=== PATIENT | female | born 1975 | race Caucasian/White ===

== ENCOUNTER → 2017-06-19 16:38 | Outpatient (CLI) | payer MEDICARE, OTHER, MEDICAID, SELFPAY | PROVIDERS: Family Provider Family Medicine; PCP Family Medicine; Visit Provider Family Medicine | DX: R32 Unspecified urinary incontinence (principal) | CPT/HCPCS: 87086; 87088 ==

== ENCOUNTER 2017-07-23 11:53 | Emergency (ER) | payer MEDICARE, OTHER, MEDICAID, SELFPAY ==
--- NOTE | 2017-07-23 11:53 | DT_ITS ---
This patient was seen during an EMR downtime July 16, 2017 - July 23, 2017. This patient may have a combination of paper and electronic documentation or all paper documentation. All documentation is viewable within the e-chart portion of [employer] for each patient visit.
[2017-07-23 11:55] VITALS: BP 148/94; PULSE 84; RESP 16; TEMP 36.3; O2SAT 97
--- NOTE | 2017-07-23 12:43 | CT_ITS ---
STUDY: CT BRAIN WITHOUT CONTRAST REASON FOR EXAM: Female, 42 years old. Seizures. Shunt. Right hemiparesis. RADIATION DOSAGE (If Supplied By Facility): CTDIvol = ( 44.99 ) mGy, DLP = ( 1727.20 ) mGycm TECHNIQUE: Transaxial CT imaging of the brain was performed without administration of intravenous contrast material. Individualized dose optimization techniques were used for this CT. COMPARISON: March 04, 2013. FINDINGS: Normal soft tissue structures. There are bur holes on the right. There is ventriculostomy shunt catheter from right posterior aspect. There is a subdural catheter entering from right frontal region. There is asymmetry of the ventricles consistent with an anatomic variant. There is stable left frontal volume loss and encephalomalacia. Normal basal ganglia and thalami. Normal brainstem. Normal cerebellum. There is no intracranial hemorrhage. There are no findings of an acute ischemic infarction. Normal visualized paranasal sinuses. CT/Brain/Head without Contrast IMPRESSION: Chronic involutional changes of the brain. Stable appearance. No hemorrhage. Electronically Signed: Aayush Barrow MD at 14:47 EDT , Service support ,
--- NOTE | 2017-07-23 12:43 | EKG12_ITS ---
Test Reason : Blood Pressure : / mmHG Vent. Rate : 074 BPM Atrial Rate : 074 BPM P-R Int : 160 ms QRS Dur : 070 ms QT Int : 368 ms P-R-T Axes : 036 066 050 degrees QTc Int : 408 ms Normal sinus rhythm Low voltage QRS Borderline ECG Confirmed by TRESSA BELL, TANYA ([id number]), photograph editor MARYBEL CASTRO ([id number]) on 07/25/2017 5:59:52 PM Referred By: KESHIA Confirmed By:TANYA BUSTILLOS MD
--- NOTE | 2017-07-23 13:46 | ED.VIS.GEN ---
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 She usually has somewhat of a right facial droop, however it was noticed to be significantly worse today while at workshop. She resides in a [facility]. 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 No new eye sx/findings (hx of lazy right eye), no difference in RUE and RLE weakness. No recent head injury or other illness. 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 (4) Lumbar degenerative disc disease Status: Chronic (5) Lumbar radiculopathy Status: Chronic (6) Traumatic brain injury Status: Chronic Past Medical History - Allergies and Home Meds Allergies/Adverse Reactions: Allergies phenytoin sodium [From Dilantin] Allergy (Verified 06/21/16 04:18) Unknown phenytoin sodium extended [From Dilantin] Allergy (Verified 06/21/16 04:18) Unknown Sulfa (Sulfonamide Antibiotics) Allergy (Verified 06/21/16 04:18) Unknown Primary Care Physician: Mary Nuñez MD [Primary Care Provider] - Surgical History: - - Hip L surgery, RETAIL LOSS PREVENTION OFFICER/SA shunt surgery, oopherectomy, skin graft, left arm surgery, heel cord surgery. Lives: - - [facility] Smoking Status: Never smoker Review of Systems General: Denies: Chills, Fever Cardiovascular: Denies: Chest pain, Palpitations Respiratory: Denies: Dyspnea, Cough Gastrointestinal: Denies: Abdominal pain, Nausea, Vomiting Neurological: Reports: Weakness - right side chronic, Parasthesia - R side chronic. Denies: Headache Physical Exam Vital Signs/Narrative: Vital Signs Temp Pulse Resp BP Pulse Ox 07/23/17 11:55 97.4 F L 84 16 148/94 H 97 General: Well nourished, Well developed Head: Normocephalic, Atraumatic Eyes: Perrl, - - left eye EOMI; R eye forced out to right; at baseline per mother/staff ENT: Moist mucous membranes, No rhinorrhea, TM's clear. Negative for: Nasal congestion, Sinus tenderness Neck: Supple, Nontender, No lymphadenopathy Cardiovascular: Regular rate, Regular rhythm, No murmurs Respiratory: No distress, CTA bilaterally, Chest nontender Abdomen: Soft, Nontender, Nondistended, Normal bowel sounds Back: Nontender, Normal Inspection Extremities: Nontender, No edema Skin: Normal color, No rash Neurological: Alert - keenly, Oriented x3 - at baseline mental status, Parasthesia - RUE and RLE. Normal sensation face., Weakness - RUE and RLE > LLE. nml strength LUE., Right side facial droop - and asymmetric forehead raising, w/ objective weakness in right frontalis muscle, although it appears to move a little., - - pt can stick out tongue straight in midline. Diagnostic/Tx/Re-eval Impressions Brain CT 07/23/17 12:43 IMPRESSION: Chronic involutional changes of the brain. Stable appearance. No hemorrhage. Electronically Signed: Aayush Barrow MD at 14:47 EDT , Service support , 07/23/17 12:43 Brain/Head without Contrast [CT] Stat Laboratory Results 07/23/17 07/23/17 07/23/17 Range/Units 13:35 13:35 14:13 WBC 5.8 (4.4-11.0) K/mm3 RBC 4.58 (4.2-5.4) M/mm3 Hgb 13.7 (12.0-15.0) g/dl Hct 41.6 (37-47) % MCV 90.8 (81-99) fL MCH 29.9 (27.0-32.0) pg MCHC 32.9 (32-36) g/gl RDW 13.2 (11.6-14.6) % RDW Differential 43.6 (35.1-43.9) fl Plt Count 212 (150-450) K/mm3 MPV 10.3 (6.2-12.0) fl Immature Gran % (Auto) 0.000 (0.0-0.9) % Neut % (Auto) 58.2 (47-70) % Lymph % (Auto) 30.5 (19-41) % [place] % (Auto) 6.8 (0-10) % Eos % (Auto) 3.8 (0-5) % Baso % (Auto) 0.7 (0-1) % Absolute Neuts (auto) 3.4 (2.0-7.7) X10^3/uL Absolute Lymphs (auto) 1.78 (0.83-4.51) X10^3/ul Total Counted Not Reportable Sodium 134 L (136-145) mmol/L Potassium 4.9 (3.5-5.1) mmol/L Chloride 102 (98-107) mmol/L Carbon Dioxide 21.0 (21.0-32.0) mmol/L Anion Gap 11 (5-15) BUN 12 (7-18) mg/dL Creatinine 0.48 L (0.55-1.02) mg/dL Est GFR (MDRD) Af Amer 181 (>60) mL/min Est GFR (MDRD) Non-Af 150 (>60) mL/min BUN/Creatinine Ratio 25.1 H (10-20) RATIO Glucose 63 L (74-106) mg/dL Calcium 8.2 L (8.5-10.1) mg/dL Urine Color (Yellow) Urine Clarity (Clear) Urine pH (5.0 - 8.0) Ur Specific [place] (1.002-1.030) Urine Protein (Negative) mg/dl Urine Glucose (UA) (Normal) mg/dl Urine Ketones (Negative) mg/dl Urine Occult Blood (Negative) /ul Urine Nitrite (Negative) Urine Bilirubin (Negative) mg/dL Urine Urobilinogen (Normal) mg/dl Ur Leukocyte Esterase (Negative) /ul Urine RBC (0-5) /hpf Urine WBC (0-5) /hpf Ur Squamous Epith Cells (5-10) /hpf Urine Bacteria (None Seen) /hpf Urine Mucus (<or=2+) /hpf Carbamazepine 6.5 (4.0-12.0) ug/mL 07/23/17 Range/Units 14:45 WBC (4.4-11.0) K/mm3 RBC (4.2-5.4) M/mm3 Hgb (12.0-15.0) g/dl Hct (37-47) % MCV (81-99) fL MCH (27.0-32.0) pg MCHC (32-36) g/gl RDW (11.6-14.6) % RDW Differential (35.1-43.9) fl Plt Count (150-450) K/mm3 MPV (6.2-12.0) fl Immature Gran % (Auto) (0.0-0.9) % Neut % (Auto) (47-70) % Lymph % (Auto) (19-41) % [place] % (Auto) (0-10) % Eos % (Auto) (0-5) % Baso % (Auto) (0-1) % Absolute Neuts (auto) (2.0-7.7) X10^3/uL Absolute Lymphs (auto) (0.83-4.51) X10^3/ul Total Counted Sodium (136-145) mmol/L Potassium (3.5-5.1) mmol/L Chloride (98-107) mmol/L Carbon Dioxide (21.0-32.0) mmol/L Anion Gap (5-15) BUN (7-18) mg/dL Creatinine (0.55-1.02) mg/dL Est GFR (MDRD) Af Amer (>60) mL/min Est GFR (MDRD) Non-Af (>60) mL/min BUN/Creatinine Ratio (10-20) RATIO Glucose (74-106) mg/dL Calcium (8.5-10.1) mg/dL Urine Color Yellow (Yellow) Urine Clarity Sl. Cloudy (Clear) Urine pH 7.0 (5.0 - 8.0) Ur Specific [place] 1.015 (1.002-1.030) Urine Protein Negative (Negative) mg/dl Urine Glucose (UA) Normal (Normal) mg/dl Urine Ketones Negative (Negative) mg/dl Urine Occult Blood Negative (Negative) /ul Urine Nitrite Negative (Negative) Urine Bilirubin Negative (Negative) mg/dL Urine Urobilinogen Normal (Normal) mg/dl Ur Leukocyte Esterase Negative (Negative) /ul Urine RBC 0 SEEN (0-5) /hpf Urine WBC 0 SEEN (0-5) /hpf Ur Squamous Epith Cells 0-5 SEEN (5-10) /hpf Urine Bacteria 0 SEEN (None Seen) /hpf Urine Mucus 0 SEEN (<or=2+) /hpf Carbamazepine (4.0-12.0) ug/mL - Rhythm Strip Rhythm Strip: Sinus Rhythm Rate: 75 Ectopy: None - EKG 1 Interpretation: Sinus Rhythm, No Acute Injury Pattern, - - nml axis. Prior: Unchanged - Medical Decision Making CT shows nothing acute, labs are otherwise unremarkable including carbamazepine level and a urinalysis which was performed by straight catheterization. Patient remained stable. On reevaluation, she has a little bit more asymmetry in her forehead, again consistent with Hill's palsy and reassuring given her CAT scan. My plan is to treat her with steroids and valacyclovir since she has no contraindications, and have her follow-up with her doctor as an outpatient. Discussed with patient and family and they are comfortable with that plan. Of note, patient has a RETAIL LOSS PREVENTION OFFICER shunt and a subdural drain, both of which were seen on CT and unremarkable otherwise. ED Disposition - Plan for ED Patient: Disposition: Home or Assisted Living Chief Complaint: Neuro S/Sx Diagnosis: Hill's palsy Instructions: ED [place] Palsy Prescriptions: Prednisone 40 mg PO DAILY #14 tab Valacyclovir HCl [Valacyclovir] 1,000 mg PO TID #21 tab Referrals: Mary Nuñez MD [Primary Care Provider] - 2 Days
--- NOTE | 2017-07-23 13:54 | ED.DCSUM_ITS ---
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 She usually has somewhat of a right facial droop, however it was noticed to be significantly worse today while at workshop. She resides in a [facility]. 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 No new eye sx/findings (hx of lazy right eye), no difference in RUE and RLE weakness. No recent head injury or other illness. 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 (4) Lumbar degenerative disc disease Status: Chronic (5) Lumbar radiculopathy Status: Chronic (6) Traumatic brain injury Status: Chronic Past Medical History - Allergies and Home Meds Allergies/Adverse Reactions: Allergies phenytoin sodium [From Dilantin] Allergy (Verified 06/21/16 04:18) Unknown phenytoin sodium extended [From Dilantin] Allergy (Verified 06/21/16 04:18) Unknown Sulfa (Sulfonamide Antibiotics) Allergy (Verified 06/21/16 04:18) Unknown Primary Care Physician: Mary Nuñez MD [Primary Care Provider] - Surgical History: - - Hip L surgery, BRICK GRADER/SA shunt surgery, oopherectomy, skin graft, left arm surgery, heel cord surgery. Lives: - - [facility] Smoking Status: Never smoker Review of Systems General: Denies: Chills, Fever Cardiovascular: Denies: Chest pain, Palpitations Respiratory: Denies: Dyspnea, Cough Gastrointestinal: Denies: Abdominal pain, Nausea, Vomiting Neurological: Reports: Weakness - right side chronic, Parasthesia - R side chronic. Denies: Headache Physical Exam Vital Signs/Narrative: Vital Signs Temp Pulse Resp BP Pulse Ox 07/23/17 11:55 97.4 F L 84 16 148/94 H 97 General: Well nourished, Well developed Head: Normocephalic, Atraumatic Eyes: Perrl, - - left eye EOMI; R eye forced out to right; at baseline per mother/staff ENT: Moist mucous membranes, No rhinorrhea, TM's clear. Negative for: Nasal congestion, Sinus tenderness Neck: Supple, Nontender, No lymphadenopathy Cardiovascular: Regular rate, Regular rhythm, No murmurs Respiratory: No distress, CTA bilaterally, Chest nontender Abdomen: Soft, Nontender, Nondistended, Normal bowel sounds Back: Nontender, Normal Inspection Extremities: Nontender, No edema Skin: Normal color, No rash Neurological: Alert - keenly, Oriented x3 - at baseline mental status, Parasthesia - RUE and RLE. Normal sensation face., Weakness - RUE and RLE > LLE. nml strength LUE., Right side facial droop - and asymmetric forehead raising, w/ objective weakness in right frontalis muscle, although it appears to move a little., - - pt can stick out tongue straight in midline. Diagnostic/Tx/Re-eval Impressions Brain CT 07/23/17 12:43 IMPRESSION: Chronic involutional changes of the brain. Stable appearance. No hemorrhage. Electronically Signed: Aayush Barrow MD at 14:47 EDT , Service support , 07/23/17 12:43 Brain/Head without Contrast [CT] Stat Laboratory Results 07/23/17 07/23/17 07/23/17 Range/Units 13:35 13:35 14:13 WBC 5.8 (4.4-11.0) K/mm3 RBC 4.58 (4.2-5.4) M/mm3 Hgb 13.7 (12.0-15.0) g/dl Hct 41.6 (37-47) % MCV 90.8 (81-99) fL MCH 29.9 (27.0-32.0) pg MCHC 32.9 (32-36) g/gl RDW 13.2 (11.6-14.6) % RDW Differential 43.6 (35.1-43.9) fl Plt Count 212 (150-450) K/mm3 MPV 10.3 (6.2-12.0) fl Immature Gran % (Auto) 0.000 (0.0-0.9) % Neut % (Auto) 58.2 (47-70) % Lymph % (Auto) 30.5 (19-41) % [place] % (Auto) 6.8 (0-10) % Eos % (Auto) 3.8 (0-5) % Baso % (Auto) 0.7 (0-1) % Absolute Neuts (auto) 3.4 (2.0-7.7) X10^3/uL Absolute Lymphs (auto) 1.78 (0.83-4.51) X10^3/ul Total Counted Not Reportable Sodium 134 L (136-145) mmol/L Potassium 4.9 (3.5-5.1) mmol/L Chloride 102 (98-107) mmol/L Carbon Dioxide 21.0 (21.0-32.0) mmol/L Anion Gap 11 (5-15) BUN 12 (7-18) mg/dL Creatinine 0.48 L (0.55-1.02) mg/dL Est GFR (MDRD) Af Amer 181 (>60) mL/min Est GFR (MDRD) Non-Af 150 (>60) mL/min BUN/Creatinine Ratio 25.1 H (10-20) RATIO Glucose 63 L (74-106) mg/dL Calcium 8.2 L (8.5-10.1) mg/dL Urine Color (Yellow) Urine Clarity (Clear) Urine pH (5.0 - 8.0) Ur Specific [place] (1.002-1.030) Urine Protein (Negative) mg/dl Urine Glucose (UA) (Normal) mg/dl Urine Ketones (Negative) mg/dl Urine Occult Blood (Negative) /ul Urine Nitrite (Negative) Urine Bilirubin (Negative) mg/dL Urine Urobilinogen (Normal) mg/dl Ur Leukocyte Esterase (Negative) /ul Urine RBC (0-5) /hpf Urine WBC (0-5) /hpf Ur Squamous Epith Cells (5-10) /hpf Urine Bacteria (None Seen) /hpf Urine Mucus (<or=2+) /hpf Carbamazepine 6.5 (4.0-12.0) ug/mL 07/23/17 Range/Units 14:45 WBC (4.4-11.0) K/mm3 RBC (4.2-5.4) M/mm3 Hgb (12.0-15.0) g/dl Hct (37-47) % MCV (81-99) fL MCH (27.0-32.0) pg MCHC (32-36) g/gl RDW (11.6-14.6) % RDW Differential (35.1-43.9) fl Plt Count (150-450) K/mm3 MPV (6.2-12.0) fl Immature Gran % (Auto) (0.0-0.9) % Neut % (Auto) (47-70) % Lymph % (Auto) (19-41) % [place] % (Auto) (0-10) % Eos % (Auto) (0-5) % Baso % (Auto) (0-1) % Absolute Neuts (auto) (2.0-7.7) X10^3/uL Absolute Lymphs (auto) (0.83-4.51) X10^3/ul Total Counted Sodium (136-145) mmol/L Potassium (3.5-5.1) mmol/L Chloride (98-107) mmol/L Carbon Dioxide (21.0-32.0) mmol/L Anion Gap (5-15) BUN (7-18) mg/dL Creatinine (0.55-1.02) mg/dL Est GFR (MDRD) Af Amer (>60) mL/min Est GFR (MDRD) Non-Af (>60) mL/min BUN/Creatinine Ratio (10-20) RATIO Glucose (74-106) mg/dL Calcium (8.5-10.1) mg/dL Urine Color Yellow (Yellow) Urine Clarity Sl. Cloudy (Clear) Urine pH 7.0 (5.0 - 8.0) Ur Specific [place] 1.015 (1.002-1.030) Urine Protein Negative (Negative) mg/dl Urine Glucose (UA) Normal (Normal) mg/dl Urine Ketones Negative (Negative) mg/dl Urine Occult Blood Negative (Negative) /ul Urine Nitrite Negative (Negative) Urine Bilirubin Negative (Negative) mg/dL Urine Urobilinogen Normal (Normal) mg/dl Ur Leukocyte Esterase Negative (Negative) /ul Urine RBC 0 SEEN (0-5) /hpf Urine WBC 0 SEEN (0-5) /hpf Ur Squamous Epith Cells 0-5 SEEN (5-10) /hpf Urine Bacteria 0 SEEN (None Seen) /hpf Urine Mucus 0 SEEN (<or=2+) /hpf Carbamazepine (4.0-12.0) ug/mL - Rhythm Strip Rhythm Strip: Sinus Rhythm Rate: 75 Ectopy: None - EKG 1 Interpretation: Sinus Rhythm, No Acute Injury Pattern, - - nml axis. Prior: Unchanged - Medical Decision Making CT shows nothing acute, labs are otherwise unremarkable including carbamazepine level and a urinalysis which was performed by straight catheterization. Patient remained stable. On reevaluation, she has a little bit more asymmetry in her forehead, again consistent with Hill's palsy and reassuring given her CAT scan. My plan is to treat her with steroids and valacyclovir since she has no contraindications, and have her follow-up with her doctor as an outpatient. Discussed with patient and family and they are comfortable with that plan. Of note, patient has a BRICK GRADER shunt and a subdural drain, both of which were seen on CT and unremarkable otherwise. ED Disposition - Plan for ED Patient: Disposition: Home or Assisted Living Chief Complaint: Neuro S/Sx Diagnosis: Hill's palsy Instructions: ED [place] Palsy Prescriptions: Prednisone 40 mg PO DAILY #14 tab Valacyclovir HCl [Valacyclovir] 1,000 mg PO TID #21 tab Referrals: Mary Nuñez MD [Primary Care Provider] - 2 Days
[2017-07-23 14:01] LABS: Absolute Lymphocyte Count 1.78 X10^3/ul (0.83-4.51); Absolute Neutrophil Count 3.4 X10^3/uL (2.0-7.7); Basophil# 0.04 X10^3/uL; Basophil% 0.7 % (0-1); Eosinophil# 0.22 X10^3/uL; Eosinophils% 3.8 % (0-5); Hematocrit 41.6 % (37-47); Hemoglobin 13.7 g/dl (12.0-15.0); Lymphocyte # 1.78 X10^3/ul (4.0); Lymphocyte % 30.5 % (19-41); Mean Corp Hgb Conc 32.9 g/gl (32-36); Mean Corpuscular Hgb 29.9 pg (27.0-32.0); Mean Corpuscular Volume 90.8 fL (81-99); Mean Platelet Vol. 10.3 fl (6.2-12.0); Monocyte% 6.8 % (0-10); Neutrophil % 58.2 % (47-70); Platelet Count 212 K/mm3 (150-450); RBC Distribution Width CV 13.2 % (11.6-14.6); RBC Distribution Width SD 43.6 fl (35.1-43.9); Red Blood Count 4.58 M/mm3 (4.2-5.4); White Blood Count 5.8 K/mm3 (4.4-11.0)
[2017-07-23 14:02] LABS: POSITIVE COUNT NO; POSITIVE DIFFERENTIAL NO; POSITIVE MORPHOLOGY NO
[2017-07-23 14:26] LABS: Anion Gap 11 (5-15); BUN 12 mg/dL (7-18); BUN/Creat Ratio 25.1 RATIO (10-20); Calcium,Total 8.2 mg/dL (8.5-10.1); Chloride 102 mmol/L (98-107); Creatinine, Serum 0.48 mg/dL (0.55-1.02); EST Glomerular Filtration Rate 150 mL/min (>60); Est Glom Filt Rate - Afr Amer 181 mL/min (>60); Glucose 63 mg/dL (74-106); Potassium 4.9 mmol/L (3.5-5.1); Sodium Level 134 mmol/L (136-145)
[2017-07-23 14:42] VITALS: BP 142/100; PULSE 72; RESP 18; O2SAT 98
[2017-07-23 14:45] LABS: Carbamazepine (Tegretol) 6.5 ug/mL (4.0-12.0)
[2017-07-23 14:50] LABS: Bacteria 0 SEEN /hpf (None Seen); Mucous, Urine 0 SEEN /hpf (<or=2+); Red Blood Cells-Urine 0 SEEN /hpf (0-5); White Blood Cells 0 SEEN /hpf (0-5)
[2017-07-23 14:56] LABS: Color, Urine Yellow (Yellow); Glucose, Dipstick Normal (Normal); Ketone-Dipstick Negative (Negative); Leukocyte Esterase-Dipstick Negative /ul (Negative); Nitrite-Dipstick Negative (Negative); Occult Blood-Urine Negative /ul (Negative); Protein-Dipstick Negative (Negative); Specific Gravity, Urine 1.015 (1.002-1.030); Urine Bilirubin Dipstick Negative (Negative); Urine Clarity Sl. Cloudy (Clear); Urine Urobilinogen Normal (Normal)
[2017-07-23 15:01] LABS: Squamous Epithelial Cells - UA 0-5 SEEN /hpf (5-10)
[2017-07-23 15:54] VITALS: BP 132/79; PULSE 71; RESP 16; O2SAT 97
== END 2017-07-23 15:55 | disposition home or self-care (01) ==
PROVIDERS: Emergency Provider Emergency Medicine; Family Provider Family Medicine; PCP Family Medicine
DX: G51.0 Bell's palsy (principal); G81.91 Hemiplegia, unspecified affecting right dominant side; G40.909 Epilepsy, unspecified, not intractable, without status epilepticus; M51.16 Intervertebral disc disorders with radiculopathy, lumbar region; H54.8 Legal blindness, as defined in USA; Z79.899 Other long term (current) drug therapy; Z87.820 Personal history of traumatic brain injury
CPT/HCPCS: 70450; 80048; 80156; 81001; 85025; 93005; 99285; P9612

== ENCOUNTER → 2017-09-12 10:49 | Outpatient (CLI) | payer MEDICARE, OTHER, MEDICAID, SELFPAY ==
--- NOTE | 2017-09-12 10:58 | BD_ITS ---
STUDY: DUAL ENERGY X-RAY ABSORPTIOMETRY / DXA REASON FOR EXAM: Female, 42 years old. History of multiple fractures. TECHNIQUE: Bone Mineral Density (BMD) measurements of lumbar spine and right hip were obtained. COMPARISON: Comparison is made with prior study dated May 28, 2007. FINDINGS: Lumbar Spine (L1-L4): g/cm2 (1.094) / T-score (-0.7) / Z-score (-0.7) Findings are suggestive of normal bone density with a low fracture risk. Right Femur Total: g/cm2 (0.715) / T-score (-2.3) / Z-score (-2.0) Right Femoral Neck: g/cm2 (0.719) / T-score (-2.3) / Z-score (-1.8) The T-Scores on the most recent prior examination were: Lumbar Spine (L1-L4): There has been improvement of bone density since the previous examination. Right Femur Total: which represents a worsening of 2.6%. BD/Dexa Bone Density Study IMPRESSION: The patient is considered osteopenic as outlined below according to World Shamar Organization (WHO) criteria with a moderate fracture risk. There has been worsening of bone density since the previous examination. Reference Information: The T-score is the number of standard deviations above or below the standard which is normal for young adults at their peak bone mineral density. The World Health Organization (WHO) interprets the T-scores as follows: Above -1 Normal bone density Between -1 and -2.5 Osteopenia Equal to / or below -2.5 Osteoporosis As a practical clinical guideline, osteopenia may be graded as follows: Mild -1 through -1.5 Moderate -1.6 through -2.0 Severe -2.1 through -2.4 The Z-score is the number of standard deviations above or below age-matched controls. A Z-score of less than -1.5 would be considered abnormal. References: 1. NIH Osteoporosis and Related Bone Diseases http://www.osteo.org 2. International Society for Clinical Densitometry http://www.iscd.org 3. National Osteoporosis Foundation http://www.nof.org Electronically Signed: Garcia Green MD at 14:45 EDT Tel [phone], Service support ,
== END ==
PROVIDERS: Family Provider Family Medicine; PCP Family Medicine; Visit Provider Family Medicine
DX: M48.54XA Collapsed vertebra, not elsewhere classified, thoracic region, initial encounter for fracture (principal); M85.80 Other specified disorders of bone density and structure, unspecified site
CPT/HCPCS: 77080

== ENCOUNTER → 2017-10-16 14:40 | Outpatient (CLI) | payer MEDICARE, OTHER, MEDICAID, SELFPAY | PROVIDERS: Family Provider Family Medicine; PCP Family Medicine; Visit Provider Family Medicine | DX: R63.5 Abnormal weight gain (principal) | CPT/HCPCS: 36415; 84443 ==

== ENCOUNTER → 2017-10-18 16:10 | Outpatient (CLI) | payer MEDICARE, OTHER, MEDICAID, SELFPAY ==
[2017-10-18 18:03] LABS: Thyroid Stim Hormone (TSH) 2.14 uIU/mL (0.358-3.74)
== END ==
PROVIDERS: Family Provider Family Medicine; PCP Family Medicine; Visit Provider Family Medicine
DX: R63.5 Abnormal weight gain (principal)
CPT/HCPCS: 36415; 84443

== ENCOUNTER → 2018-01-28 19:26 | Outpatient (CLI) | payer MEDICARE, OTHER, MEDICAID, SELFPAY ==
[2018-01-28 19:30] LABS: Bacteria 0 SEEN /hpf (None Seen); Red Blood Cells-Urine 0 SEEN /hpf (0-5); Squamous Epithelial Cells - UA 0 SEEN /hpf (5-10); White Blood Cells 0 SEEN /hpf (0-5)
[2018-01-28 20:21] LABS: Color, Urine Yellow (Yellow); Glucose, Dipstick Normal (Normal); Ketone-Dipstick Negative (Negative); Leukocyte Esterase-Dipstick Negative /ul (Negative); Nitrite-Dipstick Negative (Negative); Occult Blood-Urine Negative /ul (Negative); Protein-Dipstick Negative (Negative); Urine Bilirubin Dipstick Negative (Negative); Urine Clarity Clear (Clear); Urine Urobilinogen Normal (Normal)
[2018-01-28 20:36] LABS: Mucous, Urine RARE /hpf (<or=2+); Triple Phosphate Crystals Ur RARE /hpf (<or=1+)
--- OUTSIDE RECORDS SUMMARY | 2018-05-02 10:07 | XMS RPT_ITS ---
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 Use Topics - Smoking status: Never Smoker - Smokeless tobacco: Never Used - Alcohol use No Objective Physical Exam Constitutional: She is well-developed, well-nourished, and in no distress. Patient is seated in a wheelchair with caregiver at her side. Musculoskeletal: Right foot: There is tenderness (2nd toe) and swelling. There is normal range of motion, no bony tenderness, normal capillary refill, no crepitus and no deformity. Feet: Neurological: She is alert. Skin: Skin is warm and dry. No erythema. Nursing note and vitals reviewed. ASSESSMENT/PLAN: 1. Toe injury, right, initial encounter - ICD9: 959.7, ICD10: S99.921A - XR TOE AP/LAT/OBL RT. My reading: fracture proximal phalanx right 2nd toe. Slightly displaced. Radiologist RESULT:There is an acute, mildly displaced fracture of the proximal right 2nd proximal phalanx without definite intra-articular extension. Associated soft tissue edema. Osteopenic appearance of the osseous structures. No additional acute fracture is identified. The joint spaces are maintained. Dictated by : LYNN MIX MD - CONSULT TO PODIATRY - della tape applied to 2nd and 3rd toe. - post op shoe applied. - may use tylenol/motrin PRN pain. - Rest, ice, elevate. - patient has limited mobility but does walk with a walker. - Follow-up with your PCP in 3-5 days if symptoms have not improved or sooner if symptoms worsen - Discussed red flags and need for immediate medical evaluation if any occur. - Discussed supportive care treatment with fluids, rest and analgesia. - Discussed expected course of illness Abby Renee APRN.Abby Morales ([facility]) 06/21/2017 7:13 PM Signed Wear post op shoe until seen by podiatry. FRACTURES GENERAL INFORMATION: A fracture is a break in a bone. The length of time the cast will be on depends on how much time is needed for the bone to heal. Sometimes a temporary splint is placed to allow the swelling to come down. If this is the case, you must follow up to have the actual cast applied. INSTRUCTIONS: 1. To minimize swelling, keep the injured limb above the level of your heart as much as possible. 2. Apply ice to the injury for 15 minutes each hour for the first two days. Put the ice in a plastic bag and place a thin towel between the bag of ice and your cast. 3. Keep your cast or splint dry. It can be protected during bathing with a plastic bag. If a fiberglass cast gets a little wet, it can be dried with a architecture department chair. If you broke your toe, it has been taped to the toe next to it. After bathing you may place a small piece of cotton between the toes and retape them. 6. You may take ibuprofen, acetaminophen, or other prescribed pain medication as needed. 7. If you have been instructed to use crutches, do not bear weight and use crutches until the orthopedist tells you to stop. 8. If you are a woman who is post-menopausal or a man greater than 50 years old, contact your Primary Care Physician about having a bone density test. CONTACT YOUR DOCTOR OR GO TO THE ED IF: 1. Your cast gets damaged or breaks. 2. You have continued severe pain or more swelling than you did before the cast was placed. 3. Your skin or nails turn blue, olson, or feel cold or numb. 4. There is a bad smell or discharge coming from under the cast. Referring Provider: SELF [200] Allergies As of Date: 06/21/2017 Noted Allergy Reaction DILANTIN (PHENYTOIN) 03/08/2005 16 - Unknown SULFA (SULFONAMIDE ANTIBIOTICS) 03/08/2005 16 - Unknown Date Reviewed: 06/21/2017 Reviewed by: Abby Renee ([facility]) - Fully Assessed Reason for Visit: right 2nd toe pain [Other] Cmt: noticed it today and she started c/o her toe hurting Primary Visit Diagnosis:Toe injury, right, initial encounter [S99.921A] Order(s):XR TOE AP/LAT/OBL RT [8021635] Order #: [id number] FUTURE CONSULT TO PODIATRY [9034] Order #: [id number]: 1 Prescriptions as of 06/21/2017 Sig: CEROVITE ADVANCED FORMULA ORAL Take by mouth. LORATADINE 10 MG CAPSULE Take by mouth. NYSTATIN 100,000 UNIT/GRAM TO* Apply 1 application to affect* FLUCONAZOLE 150 MG TABLET Take one tablet today and one* LISINOPRIL 20 MG TABLET Take 20 mg by mouth once nicky* CARBAMAZEPINE ER 200 MG CAPSU* Take 200 mg by mouth twice da* DIAZEPAM ORAL Take by mouth. FEXOFENADINE 180 MG TABLET Take 180 mg by mouth once heena* SIMILASAN EYE DROPS #2 OPHTHA* Use in eyes. ZANTAC ORAL Take by mouth. MOBIC ORAL Take by mouth. FLUTICASONE 50 MCG/ACTUATION * Use 1 [place] in each nostril o* ASCORBIC ACID (VITAMIN C) 500* Take 500 mg by mouth once heena* KETOTIFEN 0.025 % (0.035 %) E* 1 Drop twice daily. LEVETIRACETAM 500 MG TABLET Take 500 mg by mouth once heena* CARBOXYMETHYLCELLULOSE SODIUM* * ZINC SULFATE ORAL Take by mouth. * ERGOCALCIFEROL (VITAMIN D2) 5* Take 50,000 Units by mouth on* * IBUPROFEN 600 MG TABLET Take 600 mg by mouth twice da* * OMEGA-3 FATTY ACIDS-VITAMIN E* Take 1 capsule by mouth. * AMANTADINE HCL 100 MG TABLET Take by mouth twice daily. * BIOFREEZE-ILEX TOPICAL Apply to affected area four * * BACLOFEN 10 MG TABLET Take 10 mg by mouth once nicky* * POLYETHYLENE GLYCOL 3350 17 G* Take 1 Packet by mouth once d* * DEEP SEA NASAL NASAL 2 sprays Q 2hr prn * CALCIUM CARBONATE 500 MG (1,2* Take one(1) tablet three time* * HYDROCORTISONE 1 % TOPICAL CR* to eyebrows twice daily prn PHENERGAN ORAL Take 12.5 mg by mouth. CERTAGEN ORAL Take by mouth. LEVETIRACETAM 500 MG TABLET Take 500 mg by mouth twice da* DIVALPROEX 500 MG TABLET,TYLER* Take 500 mg by mouth three ti* * MULTIVITAMIN TABLET Take one(1) tablet daily. Problem List As Of Date 06/21/2017 Noted Resolved Osteoarth NOS-other site [M19.90] INVALID FOR* IUD surveillance [Z30.431] INVALID FOR* TBI (traumatic brain injury) [S06.9X9A] INVALID FOR* Other instructions from your clinician: Wear post op shoe until seen by podiatry. FRACTURES GENERAL INFORMATION: A fracture is a break in a bone. The length of time the cast will be on depends on how much time is needed for the bone to heal. Sometimes a temporary splint is placed to allow the swelling to come down. If this is the case, you must follow up to have the actual cast applied. INSTRUCTIONS: 1. To minimize swelling, keep the injured limb above the level of your heart as much as possible. 2. Apply ice to the injury for 15 minutes each hour for the first two days. Put the ice in a plastic bag and place a thin towel between the bag of ice and your cast. 3. Keep your cast or splint dry. It can be protected during bathing with a plastic bag. If a fiberglass cast gets a little wet, it can be dried with a architecture department chair. If you broke your toe, it has been taped to the toe next to it. After bathing you may place a small piece of cotton between the toes and retape them. 6. You may take ibuprofen, acetaminophen, or other prescribed pain medication as needed. 7. If you have been instructed to use crutches, do not bear weight and use crutches until the orthopedist tells you to stop. 8. If you are a woman who is post-menopausal or a man greater than 50 years old, contact your Primary Care Physician about having a bone density test. CONTACT YOUR DOCTOR OR GO TO THE ED IF: 1. Your cast gets damaged or breaks. 2. You have continued severe pain or more swelling than you did before the cast was placed. 3. Your skin or nails turn blue, olson, or feel cold or numb. 4. There is a bad smell or discharge coming from under the cast. Letter Text Abby Renee APRN.[facility] Urgent Care [address] [facility] [address] Dept: [phone] 06/21/2017 Tamara Cooper [address] [facility] [address] To Whom it May Concern: This is to certify that Tamara Cooper was seen at our office for medical care. Tamara may return to [facility] on 06/22/2017. She can work in a seated position. She is able to walk but should use her walker and limit walking as much as possible. If you have any questions please feel free to call. Sincerely: Abby Renee APRN.[facility] Encounter Status:Closed by ABBY RENEE on 06/21/17 Observed: 06/19/2017 Status: F Source: KELSO CULTURE, URINE 12:00 AM [facility] REPOSITORY Urine Culture ORGANISM 1: Mixed Gram Pos AND Gram Neg Org [place] Count 50,000-80,000 MIX CULTURE Mixed contaminants. Submit a new specimen if indicated. Performed By: #### M100.0650 #### [facility] [address] [place], [address] ALLERGIES ALLERGIES DATE TYPE / CODE NAME / CODE REACTION SEVERITY SOURCE Drug phenytoin sodium Unknown Unknown [place] 7 Allergy/134748811( extended/G761577 [facility] SNOM[facility]) 618(RXNORM) Hospital Repository Drug phenytoin Unknown Unknown [facility] 7 Allergy/233448026( sodium/A77179039 [facility] SNOMED CT) 9(RXNORM) Hospital Repository Drug Sulfa Unknown Unknown [facility] 7 Allergy/114439214( (Sulfonamide Community SNOMED CT) Antibiotics)/F00 Hospital 0263206(RXNORM) Repository DRUG ASPIRIN OTHER: SEE C [facility] 6 INGREDI/008373240( [place] [facility]) Repository DRUG PHENYTOIN UNKNOWN [facility] 6 INGREDI/819270332( [place] [facility]) Repository DRUG GINKGO BILOBA OTHER: SEE C [facility] 6 INGREDI/646506881( [facility] [place] [facility]) Repository Miscellaneous OTHER OTHER: SEE C [facility] 6 Allergy/311089207( [place] SN[facility]) Repository Drug SULFA UNKNOWN [facility] 6 Class/590612919(SN (SULFONAMIDE [facility] OMED [facility]) ANTIBIOTICS) Repository DRUG ASPIRIN [facility] 4 INGREDI/615650310( System SNOMED CT) Repository DRUG PHENYTOIN RASH [facility] 2 INGREDI/725518064( System SNOMED CT) Repository Drug SULFA [facility] 2 Class/999414268(SN ANTIBIOTICS System OMED CT) Repository ENCOUNTERS ENCOUNTERS ADMIT/DISCHARGE ACCOUNT NUMBER ADMITTING ENCOUNTER LOCATION SOURCE CLASS 01/28/2018 [id number] [facility] ding:LABSPEC Repository 10/18/2017 [id number] [facility] ding:MTLAB Repository 10/16/2017 [id number] [facility] ding:MFPLAB Repository 09/12/2017 [id number] [facility] ding:OPBD Repository 09/04/2017/09/05/19 [id number] Ambulatory [address] Repository 09/03/2017/09/04/19 [id number] Unknown [facility] [address] [facility] Repository 09/03/2017/09/04/19 [id number] Unknown Ambulatory [facility] Repository 08/29/2017/08/30/19 [id number] Ambulatory [address] Repository 08/02/2017/08/08/19 [id number] Ambulatory [address] Repository 08/02/2017/08/03/19 [id number] Ambulatory [address] Repository 07/23/2017/07/24/19 [id number] Emergency [place] ding:ED Repository 07/19/2017/07/21/19 [id number] Ambulatory [address] Repository 07/19/2017/07/20/19 [id number] Ambulatory [address] Repository 06/21/2017/06/22/19 [id number] Ambulatory [address] Repository 06/21/2017/06/23/19 [id number] Ambulatory [address] Repository 06/19/2017 [id number] Ambulatory [facility] ding:LABSPEC Repository PAYERS PAYERS ENCOUNTER GUARANTOR PAYER SUBSCRIBER SOURCE 01/28/2018 TAMARA Valle Primary TAMARA M [facility] [id number] Insurance:MEDICARE ROBERTSDOB: [facility] [id number] Number: Repository [address]Col: [phone] [id number] [phone] () Date:2018-01-28 01/28/2018 Secondary MAMI Russel Bustillos Insurance:NALCPolicy ROBERTSDOB: [facility] Number: [id number] Hospital [id number] Repository Date: [place], [place] [address]RC: 01/28/2018 Tertiary TAMARA Bustillos Insurance:MEDICAIDPol [place]OB: [facility] Number: [id number] Hospital [id number] Repository Date:2018-01-28 01/28/2018 Tertiary NOT GIVENUNK [place] Insurance:SELF PAY [facility] Number: Effective Repository Date:2018-01-28 10/18/2017 Tamara Valle Primary Tamara Bustillos [id number] Insurance:MEDICARE RobertsDOB: [facility] [id number] Number: Repository [address]Btw: [id number] [phone] () Date:2017-10-18 10/18/2017 Secondary MAMI L [facility] Insurance:NALCPolicy ROBERTSDOB: Community Number: [id number] Hospital [id number] Repository Date: [place], [place] [address]HS: 10/18/2017 Tertiary Tamara Valle [facility] Insurance:MEDICAIDPol RobertsDOB: Community icy Number: [id number] Hospital [id number] Repository Date:2017-10-18 10/18/2017 Tertiary NOT GIVENUNK [place] Insurance:SELF PAY [facility] Number: Effective Repository Date:2017-10-18 10/16/2017 Tamara Valle Primary Tamara Valle [facility] [id number] Insurance:MEDICARE RobertsDOB: [id number] [place] Number: Repository [address]Yfa: 330 [id number] [phone] () Date:2017-10-16 10/16/2017 Secondary MAMI L [facility] Insurance:NALCPolicy ROBERTSDOB: Community Number: [id number] Hospital [id number] Repository Date: [place], [place] [address]NT: 10/16/2017 Tertiary Tamara Valle [place] Insurance:MEDICAIDPol RobertsDOB: [facility] icy Number: [id number] Hospital [id number] Repository Date:2017-10-16 10/16/2017 Tertiary NOT GIVENUNK [place] Insurance:SELF PAY [facility] Number: Effective Repository Date:2017-10-16 09/12/2017 Tamara Valle Primary Tamara Valle [facility] [id number] Insurance:MEDICARE RobertsDOB: [facility] [id number] [place] Number: Repository [address]Lxc: 330 [id number] [phone] () Date:2017-09-03 09/12/2017 Secondary Mami L [facility] Insurance:NALCPolicy RobertsDOB: Community Number: [id number] Hospital [id number] Repository Date: [place], [place] [address]BM: 09/12/2017 Tertiary Tamara Bustillos Insurance:[facility]ICAIDSelect Specialty HospitalD[facility]: [facility] Number: [id number] Hospital [id number] Repository Date:2017-09-03 09/12/2017 Tertiary NOT GIVENUNK [place] Insurance:SELF PAY [facility] Number: Effective Repository Date:2017-09-03 09/03/2017 TAMARA Primary TAMARA [facility] ROBERTSDOB: Insurance:MEDICARE ROBERTSDOB: System PART APolicy Number: [id number] Repository [place] [id number] [place], [place] Date:2011-05-13 [place], [address]Jug: [phone]) [place] [address] [phone] (HP) 09/03/2017 [facility] Insurance:CIGNAPolicy ALLISONDOB: System Number: [id number] Repository [id number] [address] [place] Date:2000-05-11 [place], [place] [address]Orr: (HP) () 09/03/2017 TAMARA BARAJAS [facility] ROBERTSDOB: Insurance:MEDICARE ROBERTSDOB: System PART APolicy Number: [id number] Repository [place] [id number] [address] [place], [place] Date:2011-05-13 [place], [address]Ugo: [phone] [place] [phone] (HP) 09/03/2017 Secondary [facility] Insurance:CIGNAPolicy ROBERTSDOB: System Number: [id number] Repository [id number] [address] [place] Date:2000-05-11 [place], [place] [address]Xho: () () 07/23/2017 Tamara Valle Primary Tamara [id number] Insurance:MEDICARE RobertsDOB: [facility] [id number] Number: Repository [address]Fwv: 330 [id number] [phone] () Date:2017-07-23 07/23/2017 Secondary Hoffman L [facility] Insurance:NALCPolicy RobertsDOB: Community Number: [id number] Hospital [id number] Repository Date: [place], [place] [address]LE: 07/23/2017 Tertiary Tamara Valle [place] Insurance:MEDICAIDPol RobertsDOB: Community icy Number: [id number] Hospital [id number] Repository Date:2017-07-23 07/23/2017 Tertiary NOT GIVENUNK [place] Insurance:SELF PAY [facility] Number: Effective Repository Date:2017-07-23 06/19/2017 Tamara Valle Primary Tamara Bustillos [id number] Insurance:MEDICARE RobertsDOB: [facility] [id number] Number: Repository [address]Crs: 330 [id number] [phone] () Date:2017-06-19 06/19/2017 Secondary Hoffman L [place] Insurance:NALCPolicy RobertsDOB: Community Number: [id number] Hospital [id number] Repository Date: [place], [place] [address]BV: 06/19/2017 Tertiary Tamara Valle [place] Insurance:MEDICAIDPol RobertsDOB: Community icy Number: [id number] Hospital [id number] Repository Date:2017-06-19 06/19/2017 Tertiary NOT GIVENUNK [place] Insurance:SELF PAY [facility] Number: Effective Repository Date:2017-06-19
== END ==
PROVIDERS: Family Provider Family Medicine; PCP Family Medicine; Referring Provider Family Medicine; Visit Provider Family Medicine
DX: N89.8 Other specified noninflammatory disorders of vagina (principal)
CPT/HCPCS: 81001; 87086; 87088

== ENCOUNTER → 2018-07-09 10:18 | Outpatient (CLI) | payer MEDICARE, OTHER, MEDICAID, SELFPAY ==
[2018-07-09 12:37] LABS: Color, Urine Yellow (Yellow); Glucose, Dipstick Normal (Normal); Ketone-Dipstick Negative (Negative); Leukocyte Esterase-Dipstick Negative /ul (Negative); Nitrite-Dipstick Negative (Negative); Occult Blood-Urine Negative /ul (Negative); Protein-Dipstick Negative (Negative); Urine Bilirubin Dipstick Negative (Negative); Urine Clarity Clear (Clear); Urine Urobilinogen Normal (Normal)
== END ==
PROVIDERS: Family Provider Family Medicine; PCP Family Medicine; Referring Provider Family Medicine; Visit Provider Family Medicine
DX: R39.89 Other symptoms and signs involving the genitourinary system (principal)
CPT/HCPCS: 81002; 87086; 87088

== ENCOUNTER → 2018-12-02 12:49 | Outpatient (CLI) | payer MEDICARE, OTHER, MEDICAID, SELFPAY | PROVIDERS: Family Provider Family Medicine; PCP Family Medicine; Referring Provider Family Medicine; Visit Provider Family Medicine | DX: R39.9 Unspecified symptoms and signs involving the genitourinary system (principal) | CPT/HCPCS: 87086; 87088 ==

== ENCOUNTER 2018-12-05 09:26 | Inpatient (IN) | payer MEDICARE, MEDICAID, SELFPAY ==
[2018-12-05] VITALS (17 sets, daily range): BP systolic 129–172; BP diastolic 86–116; PULSE 76–100; RESP 14–82; TEMP 36.3–36.6; O2SAT 98–100; BMI 28.3; BMI 28.4; BMI 27.3
--- NOTE | 2018-12-05 09:53 | EKG12_ITS ---
Test Reason : CP Blood Pressure : / mmHG Vent. Rate : 077 BPM Atrial Rate : 077 BPM P-R Int : 196 ms QRS Dur : 078 ms QT Int : 372 ms P-R-T Axes : 058 021 035 degrees QTc Int : 420 ms Normal sinus rhythm Possible Left atrial enlargement Borderline ECG Confirmed by TRESSA BELL, TANYA ([id number]), industrial editor TONIA GARCIA ([id number]) on 12/09/2018 10:47:43 AM Referred By: Amelie Valencia Confirmed By:TANYA BUSTILLOS MD
--- NOTE | 2018-12-05 09:53 | RAD_ITS ---
STUDY: X-RAY CHEST REASON FOR EXAM: Female, 43 years old. Chest pain. TECHNIQUE: Single AP portable view of the chest. COMPARISON: Comparison is made with prior examination dated July 01, 2016. FINDINGS: A right-sided ventriculoperitoneal shunt tube is seen. EKG electrodes are seen. There is elevation of the left hemidiaphragm with mild degree of increased markings at the left lung base suggestive of a atelectasis. There is no demonstrated pleural abnormality. Normal size heart. Normal mediastinum and mackenzie. Normal visualized pulmonary arteries. Normal visualized aortic arch and descending thoracic aorta. Normal visualized thoracic spine. Inferior dislocation of the left shoulder joint with the fracture of the greater tuberosity. There is no demonstrated abnormality of the visualized soft tissue structures of the upper abdomen. RAD/Chest 1 View (Portable) IMPRESSION: Elevation of the left hemidiaphragm with mild degree of left basilar atelectasis. Inferior dislocation of the left shoulder joint with a fracture involving the greater tuberosity of the proximal humerus. Electronically Signed: Garcia Green, at 10:33 EDT , Service support ,
--- NOTE | 2018-12-05 09:54 | ED.VIS.CHEST ---
History of Present Illness Chief Complaint: Chest Pain Informant: Patient - And skilled nursing/work staff, EMS Onset: Today Activity at onset: Unknown Current Severity: Gone Maximum Severity: Moderate Worsened By: - - Unknown Relieved By: - - Nothing in particular Associated Symptoms: - - Left arm pain Narrative: Patient has a history of traumatic brain injury, resides at a skilled nursing, staff states that she has significant issues with short-term memory, so history is extremely limited here. She states in order to discover what symptoms the patient is having, they have to ask her direct yes/no questions. As the worker was receiving her off of the bus today, she was crying. She asked the manager of business about it and the manager of business said that she was crying because her left arm was hurting. Patient has no idea if she injured it or did anything to it to explain the discomfort she has been having. She states it still hurts, she would not indicate where, we think it is her left upper arm. She states she was having mid chest discomfort as well but that is resolved now. She denies any nausea or vomiting, headache, abdominal discomfort, numbness. 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 Smoking Status: Never smoker Review of Systems ROS: Unable to Obtain - except as indicated Cardiovascular: Reports: Chest pain Gastrointestinal: Denies: Abdominal pain, Nausea, Vomiting Musculoskeletal: Reports: Extremity Pain. Denies: Neck pain, Back pain, Swelling Skin: Denies: Wounds Neurological: Denies: Headache, Weakness, Numbness Physical Exam Vital Signs/Narrative: Vital Signs Temp Pulse Resp BP Pulse Ox 12/05/18 09:27 97.5 F L 81 16 169/114 H 98 Inital Vital Signs reviewed: Yes General: Well nourished, Well developed, No Acute Distress Head: Normocephalic, Atraumatic Eyes: Perrl, EOMI - dysconjugate gaze right eye ENT: Moist mucous membranes, No rhinorrhea Neck: Supple, Nontender, No lymphadenopathy Cardiovascular: Regular rate, Regular rhythm, No murmurs Respiratory: No distress, CTA bilaterally, Chest nontender Abdomen: Soft, Nontender, Nondistended, Normal bowel sounds Back: Nontender, Normal Inspection Extremities: Nontender - nontender LUE, able to move all joints, No edema Skin: Normal color, No rash, No Trauma Neurological: Alert, Cranial nerves II-XII grossly intact, Normal Sensation, - - contracture RUE; braces on both feet; able to move everything Psychological: Normal affect, Normal Mood Diagnostic/Tx/Re-eval Impressions Chest X-Ray 12/05/18 09:53 IMPRESSION: Elevation of the left hemidiaphragm with mild degree of left basilar atelectasis. Inferior dislocation of the left shoulder joint with a fracture involving the greater tuberosity of the proximal humerus. Electronically Signed: Garcia Peter, at 10:33 EDT , Service support , 12/05/18 09:53 Chest 1 View (Portable) [RAD] Stat 12/05/18 14:47 Shoulder min 2 Views [RAD] Stat Laboratory Results 12/05/18 12/05/18 10:36 10:36 WBC 13.4 H RBC 4.52 Hgb 13.7 Hct 40.4 MCV 89.4 MCH 30.3 MCHC 33.9 RDW Std Deviation 40.1 RDW Coeff of Valery 12.3 Plt Count 257 MPV 9.7 Immature Gran % (Auto) 0.400 Neut % (Auto) 91.5 H Lymph % (Auto) 4.3 L Stafford % (Auto) 3.4 Eos % (Auto) 0.1 Baso % (Auto) 0.3 Absolute Neuts (auto) 12.2 H Absolute Lymphs (auto) 0.58 L Nucleated RBC % 0 Sodium 130 L Potassium 3.6 Chloride 96 L Carbon Dioxide 25.0 Anion Gap 9 BUN 7 Creatinine 0.44 L Estim Creat Clear Calc 162.88 Est GFR (MDRD) Af Amer 201 Est GFR (MDRD) Non-Af 166 BUN/Creatinine Ratio 16.1 Glucose 141 H Calcium 8.4 L Troponin I < 0.015 - Rhythm Strip Rhythm Strip: Sinus Rhythm Rate: 75 Ectopy: None - EKG Initial EKG Interpretation: Sinus Rhythm, No Acute Injury Pattern, - - nml axis. nml EKG Treatment: Morphine, GI Cocktail - Medical Decision Making Given her unremarkable EKG, initially considering GI etiologies of chest pain with referred discomfort to the left upper extremity. Work-up was ordered since history is very limited with this patient, and basically shows no evidence of cardiac injury, but x-ray shows a fracture dislocation of her proximal humerus, the fracture only involving the greater tuberosity, so reduction could be achieved without surgery. See procedure note below. I suspect this was causing her left shoulder pain. The reason of this is unknown. She does have a history of seizures, we do not know if she had a seizure today, but this dislocation is anterior not posterior. Discussed with Dr. Vieira, will see the patient tomorrow. I suspect she will not require any operative treatments for this, however since she has limited use of her right upper extremity due to her traumatic brain injury, she since has become left-handed and now will not be able to use her left hand for very much. Since she is in a skilled nursing, she will need more care than they can provide for her there. Due to this, she will be admitted medically for further evaluation and placement. Procedures Procedure(s): 1. Procedural sedation --propofol 60 mg given in single aliquot, achieving good sedation with mild borderline hypoxemia that was resolved with increasing oxygen and nasal cannula, recovered otherwise unremarkably. 2. Closed reduction left shoulder fracture-dislocation --initially attempted to reduce with Milch procedure after morphine only, patient allowed it with very little resistance but was not able to achieve reduction. Therefore under procedural sedation, this was achieved using a combination of manual manipulation of the humeral head by myself, and traction-countertraction techniques with an acute care nursing assistant. Postreduction films in the room after the procedure confirmed humeral head reduction. After patient awakened from procedural sedation, neurovascularly intact distally. ED Disposition - Plan for ED Patient: Disposition: [facility] Diagnosis: History of traumatic brain injury, Closed fracture dislocation of left shoulder, Chest pain, unspecified Referrals: Mary Nuñez MD [Primary Care Provider] -
[2018-12-05] MEDS: Mag Hydrox/Al Hydrox/Simeth 30 ML UDC PO (10:15)
[2018-12-05 10:56] LABS: Absolute Lymphocyte Count 0.58 X10^3/uL (0.83-4.51); Absolute Neutrophil Count 12.2 X10^3/uL (2.0-7.7); Basophil# 0.04 X10^3/uL; Basophil% 0.3 % (0-1); Eosinophil# 0.02 X10^3/uL; Eosinophils% 0.1 % (0-5); Hematocrit 40.4 % (37-47); Hemoglobin 13.7 g/dL (12.0-15.0); Lymphocyte # 0.58 X10^3/ul (4.0); Lymphocyte % 4.3 % (19-41); Mean Corp Hgb Conc 33.9 g/dL (32-36); Mean Corpuscular Hgb 30.3 pg (27.0-32.0); Mean Corpuscular Volume 89.4 fL (81-99); Mean Platelet Vol. 9.7 fl (6.2-12.0); Monocyte# 0.46 X10^3/uL; Monocyte% 3.4 % (0-10); NRBC Flagged by Analyzer 0 % (0-5); Neutrophil # 12.23 X10^3/uL (2.7-7.7); Neutrophil % 91.5 % (47-70); POSITIVE DIFFERENTIAL YES; Platelet Count 257 K/mm3 (150-450); RBC Distribution Width CV 12.3 % (11.6-14.6); RBC Distribution Width SD 40.1 fl (35.1-43.9); Red Blood Count 4.52 M/mm3 (4.2-5.4); White Blood Count 13.4 K/mm3 (4.4-11.0)
[2018-12-05 11:03] LABS: Differential Indicated SCAN CRITERIA MET
[2018-12-05 11:07] LABS: Anion Gap 9 (5-15); BUN 7 mg/dL (7-18); BUN/Creat Ratio 16.1 RATIO (10-20); Calcium,Total 8.4 mg/dL (8.5-10.1); Chloride 96 mmol/L (98-107); Creatinine, Serum 0.44 mg/dL (0.55-1.02); EST Glomerular Filtration Rate 166 mL/min (>60); Est Glom Filt Rate - Afr Amer 201 mL/min (>60); Estimated Creatinine Clearance 162.88 ml/min; Glucose 141 mg/dL (74-106); Potassium 3.6 mmol/L (3.5-5.1); Sodium Level 130 mmol/L (136-145)
[2018-12-05] MEDS: Morphine 4 MG/ML Syringe IV (12:25)
--- NOTE | 2018-12-05 12:35 | CM.ED ---
SOCIAL WORK INFORMANT: DR. SCHMITT REASON FOR REFERRAL: SUPPORT/RESOURCES UPDATED BY DR. SCHMITT, PATIENT FROM RESIDENTIAL AND PATIENT'S FATHER CONCERNED WITH CARE. MET WITH PATIENT AND PATIENT'S PARENTS AT BEDSIDE. INTRODUCED ROLE AND REASON FOR REFERRAL. FATHER REQUESTED TO SPEAK WITH THIS WORKER OUTSIDE OF ROOM. PER PATIENT'S FATHER, HEMANT, PATIENT SUFFERED A TRAUMATIC BRAIN INJURY BACK IN 1987 AND HAS BEEN IN AND OUT OF GROUP HOMES. [facility] STATES PATIENT IS CONNECTED WITH [facility] AND [facility]. FATHER STATES PATIENT HAD DOCTOR'S APPOINTMENT A FEW DAYS AGO AND PATIENT APPEARED UNBATHED. PATIENT NOW WITH LEFT ARM INJURY. [facility] HAS SENT AN E-MAIL REGARDING CONCERNS. [facility] I HOPE THIS ISN'T RETALIATION. [facility] WISHES FOR THE [facility] TO INVESTIGATE RESIDENTIAL. EMOTIONAL SUPPORT, ENCOURAGEMENT AND ACTIVE LISTENING PROVIDED. DR. SCHMITT UPDATED. 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
[2018-12-05] MEDS: Propofol 200 MG/20 ML Vial IV BOLUS (14:35)
--- NOTE | 2018-12-05 14:47 | RAD_ITS ---
STUDY: X-RAY - LEFT SHOULDER REASON FOR EXAM: Female, 43 years old. Post reduction. TECHNIQUE: 2 view(s) of the shoulder. COMPARISON: None. FINDINGS: Satisfactory reduction. Normal acromioclavicular joint. Normal acromion. Normal humeral head and visualized proximal humerus. There is periarticular soft tissue calcification consistent with a calcific tendinitis. Normal visualized pulmonary apex. RAD/Shoulder min 2 Views IMPRESSION: Satisfactory reduction. Electronically Signed: Garcia Green, at 15:32 EDT , Service support ,
--- NOTE | 2018-12-05 15:44 | HP.PCM_ITS ---
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 She was admitted by the ED on 12/05/2018 with a complaint of left shoulder pain. Patient is a resident in a snf in today as she was getting of the ball from the snf, she was admitted to be crying because her left arm was hurting. Patient could not say if she had injured it or had experienced any trauma to the shoulder. She also had assisted mild chest discomfort at the time of the left shoulder pain but this had resolved at time of admission to the ED. History was mainly taken from her father. Review of systems is otherwise negative. On admission in the ED, chemistry was significant for sodium of 130 and CBC showed white cell count of 13.4. Chest x-ray showed elevation of the left hemidiaphragm with mild degree of left basilar atelectasis and inferior dislocation of the left shoulder joint with a fracture involving the greater tuberosity of the proximal humerus. She had reduction of the left shoulder dislocation done in the ED and subsequent left shoulder x-ray showed satisfactory reduction. She has been admitted to be managed for debility due to left shoulder dislocation. 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) Traumatic brain injury (Chronic) Seizure disorder (Chronic) Allergies phenytoin sodium [From Dilantin] Allergy (Verified 06/21/16 04:18) Unknown phenytoin sodium extended [From Dilantin] Allergy (Verified 06/21/16 04:18) Unknown Sulfa (Sulfonamide Antibiotics) Allergy (Verified 06/21/16 04:18) Unknown Home Medications: Ambulatory Orders Medication Instructions Recorded Amantadine [Symmetrel] 100 mg PO BID 03/03/13 Ascorbic Acid [Vitamin C] 500 mg PO DAILY@0800 03/03/13 Multivitamins,Ther W-Minerals 1 tablet PO DAILY 03/03/13 [Multivitamin With Minerals] Polyethylene Glycol 3350 [Miralax] 17 gm PO DAILY PRN PRN 03/03/13 Zinc Sulfate (50mg elemental) 220 mg PO DAILY 03/03/13 [Zinc Sulfate] Meloxicam [Mobic] 7.5 mg PO DAILY 05/18/14 [place]-3 Fatty Acids/Fish Oil [Fish 1,000 mg PO DAILY 05/18/14 Oil 1,000 mg Capsule] Ranitidine [Zantac] 150 mg PO BID 05/18/14 Carboxymethylcellulos/Glycerin 1 drop EACH EYE DAILY 05/11/16 [Refresh Optive Gel Eye Drops] Fluticasone 0.05% [Flonase Nasal 1 spray NASAL DAILY 05/11/16 [place]] levETIRAcetam tablet [Keppra] 500 mg PO BID 05/11/16 Diazepam [Valium] 10 mg RECTAL UD PRN 06/21/16 Petrolatum,White [Vaseline] 18 ml TP BID 06/21/16 Baclofen 10 mg PO QHS 07/23/17 Ibuprofen 600 mg PO DAILY PRN PRN 07/23/17 Lisinopril 20 mg PO DAILY 07/23/17 Loratadine [Claritin] 10 mg PO DAILY 07/23/17 Calcium Carbonate [Oysco-500] 500 mg PO DAILY 12/05/18 Carbamazepine 200 mg PO BID 12/05/18 Peg 400/Hypromellose/Glycerin 1 drp EACH EYE BID 12/05/18 [Artificial Tears] Surgical History: - - Hip L surgery, SHOE CEMENTER/SA shunt surgery, oopherectomy, skin graft, left arm surgery, heel cord surgery. Psychiatric History: No pertinent psych hx [employer] History: - - menorrhagia. Lives: - - snf Smoking Status: Never smoker Tobacco Use: Non-smoker Alcohol: None Drugs: None - *Family History Maternal History Items: No pertinent history Review of Systems Constitutional: Denies: Fever, Malaise, Fatigue Eyes: Reports: - - has chronic impaired vision. Denies: Blurred vision HEENT: Denies: Head Aches, Sinus Congestion, Sinus Drainage Cardiovascular: Denies: Chest Pain, Palpitations Respiratory: Denies: Cough, Shortness of breath at rest, Sputum production Gastrointestinal: Denies: Abdominal Pain, Nausea, Vomiting Genitourinary: Denies: Dysuria Musculoskeletal: Reports: Joint Pain - left shoulder pain. Denies: Arm Pain, Hand Pain Skin: Denies: Rash, Wounds Neurological: Reports: Seizures. Denies: Focal weakness, Numbness, Tingling Psychiatric: Denies: Anxiety, Depression, Homicidal Ideations, Suicidal Ideations Hematologic/ Lymphatic: Denies: Easy Bruising, Easy Bleeding VTE Information - Inpt Only VTE Present on Admission: No VTE Pharm Prophylaxis ordered?: Yes Patient Problems: Active and Suspected Problems History of traumatic brain injury (Acute) Closed fracture dislocation of left shoulder (Acute) Chest pain, unspecified (Acute) - Physical Exam Vitals/I&O's: Vital Signs Temp Pulse Resp BP Pulse Ox 97.5 F L 98 18 137/110 H 99 12/05/18 09:27 12/05/18 15:29 12/05/18 15:29 12/05/18 15:29 12/05/18 15:29 Oxygen Flow Rate (L/min) [3] 4 Oxygen Flow Rate (L/min) [2] 6 Oxygen Flow Rate (L/min) [1 ( 4 Initial Baseline)] Oxygen Flow Rate (L/min) 2 Oxygen Delivery Method [3] Nasal Cannula Oxygen Delivery Method [2] Nasal Cannula Oxygen Delivery Method [1 ( Nasal Cannula Initial Baseline)] Oxygen Delivery Method Room Air Weight: 186 lb 8 oz Body Mass Index (BMI) 28.3 Finger Stick Blood Glucose 77 General: Alert, Cooperative, No apparent distress HEENT: Atraumatic, PERRLA, EOMI, Normocephalic Neck: Supple, No JVD, Negative Carotid Bruits Lungs: Clear to auscultation, Normal air movement, No rhonchi, No wheeze, No rales Cardiovascular: Regular rate, Regular Rhythm, Normal S1, Normal S2, No murmurs Abdomen: Bowel Sounds Present, Soft, Non Tender, Non-Distended, No Hepato- splenomegaly Extremities: No clubbing, No cyanosis, No edema, Capillary Refill Less than 3 Seconds Skin: No rashes, No breakdown Musculoskeletal: - - mild tenderness to minimal palpation of left shoulder. Lymphatic: No Cervical, Supraclavicular, or Inguinal Adenopathy Neurological: - - 3/5 power in both UEs; normal tone Psych/Mental Status: Normal Affect, Appropriate Laboratory Results 12/05/18 10:36: WBC 13.4 H, RBC 4.52, Hgb 13.7, Hct 40.4, MCV 89.4, MCH 30.3, MCHC 33.9, RDW Std Deviation 40.1, RDW Coeff of Valery 12.3, Plt Count 257, MPV 9.7, Immature Gran % (Auto) 0.400, Neut % (Auto) 91.5 H, Lymph % (Auto) 4.3 L, [place]undy % (Auto) 3.4, Eos % (Auto) 0.1, Baso % (Auto) 0.3, Absolute Neuts (auto) 12.2 H, Absolute Lymphs (auto) 0.58 L, Nucleated RBC % 0 12/05/18 10:36: Sodium 130 L, Potassium 3.6, Chloride 96 L, Carbon Dioxide 25.0, Anion Gap 9, BUN 7, Creatinine 0.44 L, Estim Creat Clear Calc 162.88, Est GFR (MDRD) Af Amer 201, Est GFR (MDRD) Non-Af 166, BUN/Creatinine Ratio 16.1, Glucose 141 H, Calcium 8.4 L, Troponin I < 0.015 Diagnostic Data Chest X-Ray 12/05/18 09:53 IMPRESSION: Elevation of the left hemidiaphragm with mild degree of left basilar atelectasis. Inferior dislocation of the left shoulder joint with a fracture involving the greater tuberosity of the proximal humerus. Electronically Signed: Garcia Green, at 10:33 EDT , Service support , Shoulder X-Ray 12/05/18 14:47 IMPRESSION: Satisfactory reduction. Electronically Signed: Garcia Green, at 15:32 EDT , Service support , Assessment/Plan All Active Problems History of traumatic brain injury (Acute) Closed fracture dislocation of left shoulder (Acute) Chest pain, unspecified (Acute) 43 y/o admitted with a complaint of left shoulder pain 1. Left shoulder dislocation and fracture * s/p reduction of left shoulder dislocation * admit to Med surg with telemetry * Etiology of left shoulder fracture and dislocation is not clear * PT/OT consult * IV morphine, tylenol and oxycodone for pain * consult orthopedic surgery * Family counseled that management is likely to be conservative and patient will need to be in a sling for at least 6 to 8 weeks. * Fall precautions. * 2. Debility due to left shoulder dislocation and fracture: Management as under 1. 3. History of seizures due to traumatic brain injury * On carbamazepine and Keppra 4. Hypertension: On lisinopril 5. Hyponatremia: Na is 130. This is chronic. Will monitor DVT prophylaxis: Lovenox Disposition: * Will need placement. Parents are not happy with the current snf that she is and because they have concerns about hygiene and has generally not been taking care of well. * They will want other options for placement. * Case management consulted. Code Visit OBSV E&M: 83081 Initial observation care L2
--- NOTE | 2018-12-05 16:30 | CASEMGMT ---
Social Work Note SW reviewed chart and pt is from [facility]. SW in ED spoke with pt's father regarding concerns with [facility]. CHRIST placed a call to [facility] ED SW. Michi states per pt's father the plan is for pt to return to [facility] while his father and the board of DD work to get pt placed at different [facility]. Pt's father has concerns with the [facility] and has made complaints to the board of DD regarding concerns. SW will follow up with pt and pt's father tomorrow. If pt requires more level of assistance than [facility] can provided pt will need SNF. Pt does have medicaid so a LOC could be obtained but pt also has board of DD services and pt will trip the screen and require approval from board of DD board before pt can discharge to SNF. SW to continue to follow. Maryanne Davis IMAGING SERVICES DIRECTOR, BIOCHEMICAL ENGINEER
[2018-12-05] MEDS: 0.9% Normal Saline 1,000 ML 75 ML IV (16:55)
[2018-12-05] MEDS: Acetaminophen 325 MG Tablet 650 MG PO (21:03)
[2018-12-05] MEDS: Famotidine 20 MG Tablet PO (21:03)
[2018-12-05] MEDS: Amantadine 100 MG Capsule PO (21:03)
[2018-12-05] MEDS: carBAMazepine 200 MG Tablet PO (21:04)
[2018-12-05] MEDS: Baclofen 10 MG Tablet PO (21:05)
[2018-12-05] MEDS: levETIRAcetam 500 MG Tablet PO (21:05)
[2018-12-05] MEDS: Glycerin/Hypromellose/PEG400 15 ml Bottle 1 DRP EACH EYE (21:08)
[2018-12-06 02:10] VITALS: BP 124/82; PULSE 102; RESP 16; TEMP 36.4; O2SAT 100
[2018-12-06 06:15] LABS: Absolute Neutrophil Count 4.9 X10^3/uL (2.0-7.7); Basophil# 0.05 X10^3/uL; Basophil% 0.7 % (0-1); Eosinophil# 0.14 X10^3/uL; Eosinophils% 1.9 % (0-5); Hematocrit 34.5 % (37-47); Hemoglobin 11.8 g/dL (12.0-15.0); Lymphocyte % 19.5 % (19-41); Mean Corp Hgb Conc 34.2 g/dL (32-36); Mean Corpuscular Hgb 30.4 pg (27.0-32.0); Mean Corpuscular Volume 88.9 fL (81-99); Mean Platelet Vol. 10.1 fl (6.2-12.0); Monocyte% 9.7 % (0-10); NRBC Flagged by Analyzer 0 % (0-5); Neutrophil # 4.87 X10^3/uL (2.7-7.7); Neutrophil % 67.9 % (47-70); Platelet Count 228 K/mm3 (150-450); RBC Distribution Width CV 12.5 % (11.6-14.6); RBC Distribution Width SD 41.1 fl (35.1-43.9); Red Blood Count 3.88 M/mm3 (4.2-5.4); White Blood Count 7.2 K/mm3 (4.4-11.0)
[2018-12-06 06:25] LABS: Anion Gap 5 (5-15); BUN 6 mg/dL (7-18); BUN/Creat Ratio 17.2 RATIO (10-20); Calcium,Total 7.9 mg/dL (8.5-10.1); Chloride 104 mmol/L (98-107); Creatinine, Serum 0.35 mg/dL (0.55-1.02); EST Glomerular Filtration Rate 214 mL/min (>60); Est Glom Filt Rate - Afr Amer 259 mL/min (>60); Estimated Creatinine Clearance 204.76 ml/min; Glucose 90 mg/dL (74-106); Potassium 3.9 mmol/L (3.5-5.1); Sodium Level 134 mmol/L (136-145)
--- NOTE | 2018-12-06 09:59 | PCM.PN.HOSP ---
Patient Problems: Active and Suspected Problems History of traumatic brain injury (Acute) Closed fracture dislocation of left shoulder (Acute) Chest pain, unspecified (Acute) Subjective: The patient was admitted with left shoulder pain. Patient has history of traumatic brain injury with residual right-sided weakness, seizures and right eye decreased vision has left shoulder dislocation with fracture involving the greater tuberosity of proximal humerus. Shoulder dislocation was reduced in ED confirmed with subsequent x-ray. Patient was further admitted for orthopedic surgeon evaluation. Vitals/I&O's: Vital Signs Temp Pulse Resp BP Pulse Ox 97.5 F L 102 H 16 124/82 H 100 12/06/18 02:10 12/06/18 02:10 12/06/18 02:10 12/06/18 02:10 12/06/18 02:10 Oxygen Flow Rate (L/min) [3] 4 Oxygen Flow Rate (L/min) [2] 6 Oxygen Flow Rate (L/min) [1 ( 4 Initial Baseline)] Oxygen Flow Rate (L/min) 2 Oxygen Delivery Method [3] Nasal Cannula Oxygen Delivery Method [2] Nasal Cannula Oxygen Delivery Method [1 ( Nasal Cannula Initial Baseline)] Oxygen Delivery Method Room Air Weight: 179 lb 14.4 oz Body Mass Index (BMI) 27.3 Finger Stick Blood Glucose 77 Intake and Output for Last 24 Hours 12/04/18 12/05/18 12/06/18 23:59 23:59 23:59 Intake Total 1060 / 1060 Balance 1060 / 1060 General: Alert HEENT: - - Patient not able to move right eye to right side but is fixed on the left canthus. It seems chronic. Decreased visual acuity in left eye. Oral: Dry Mucosa Neck: Supple, No JVD, Negative Carotid Bruits Lungs: No rhonchi, No wheeze, No rales, Diminished Cardiovascular: Regular rate, Normal S1, Normal S2, No murmurs Abdomen: Bowel Sounds Present, Soft, Non Tender, Non-Distended Extremities: Capillary Refill Less than 3 Seconds, Edema Skin: No rashes, No breakdown Musculoskeletal: Arthritic Changes, Tenderness - Tenderness over left shoulder. Left shoulder and U-sling Laboratory Results 12/05/18 10:36: WBC 13.4 H, RBC 4.52, Hgb 13.7, Hct 40.4, MCV 89.4, MCH 30.3, MCHC 33.9, RDW Std Deviation 40.1, RDW Coeff of Valery 12.3, Plt Count 257, MPV 9.7, Immature Gran % (Auto) 0.400, Neut % (Auto) 91.5 H, Lymph % (Auto) 4.3 L, [place] % (Auto) 3.4, Eos % (Auto) 0.1, Baso % (Auto) 0.3, Absolute Neuts (auto) 12.2 H, Absolute Lymphs (auto) 0.58 L, Nucleated RBC % 0 12/05/18 10:36: Sodium 130 L, Potassium 3.6, Chloride 96 L, Carbon Dioxide 25.0, Anion Gap 9, BUN 7, Creatinine 0.44 L, Estim Creat Clear Calc 162.88, Est GFR (MDRD) Af Amer 201, Est GFR (MDRD) Non-Af 166, BUN/Creatinine Ratio 16.1, Glucose 141 H, Calcium 8.4 L, Troponin I < 0.015 12/06/18 05:50: WBC 7.2, RBC 3.88 L, Hgb 11.8 L, Hct 34.5 L, MCV 88.9, MCH 30.4, MCHC 34.2, RDW Std Deviation 41.1, RDW Coeff of Valery 12.5, Plt Count 228, MPV 10.1, Immature Gran % (Auto) 0.300, Neut % (Auto) 67.9, Lymph % (Auto) 19.5, [place] % (Auto) 9.7, Eos % (Auto) 1.9, Baso % (Auto) 0.7, Absolute Neuts (auto) 4.9, Absolute Lymphs (auto) 1.40, Nucleated RBC % 0 12/06/18 05:50: Sodium 134 L, Potassium 3.9, Chloride 104, Carbon Dioxide 25.0, Anion Gap 5, BUN 6 L, Creatinine 0.35 L, Estim Creat Clear Calc 204.76, Est GFR (MDRD) Af Amer 259, Est GFR (MDRD) Non-Af 214, BUN/Creatinine Ratio 17.2, Glucose 90, Calcium 7.9 L Current Medications Acetaminophen (Tylenol) 650 mg PO Q6H PRN PRN PRN Reason: Pain Score 1-3/Temp > 100.7 F Last Admin: 12/05/18 21:03 Dose: 650 mg Documented by: Amantadine HCl (Symmetrel) 100 mg PO BID [facility] Last Admin: 12/05/18 21:03 Dose: 100 mg Documented by: Ascorbic Acid (Vitamin C) 500 mg PO DAILY@0800 [facility] Baclofen (Lioresal) 10 mg PO QHS [facility] Last Admin: 12/05/18 21:05 Dose: 10 mg Documented by: Calcium Carbonate (Os-Fabricio 500) 500 mg PO DAILY [facility] Carbamazepine (Tegretol) 200 mg PO BID [facility] Last Admin: 12/05/18 21:04 Dose: 200 mg Documented by: Dextrose (D50w Syringe) 0 gm IV X1 PRN; Protocol PRN Reason: Hypoglycemia Diazepam (Diastat Acudial) 10 mg RECTAL UD PRN PRN Reason: SEIZURES Enoxaparin Sodium (Lovenox) 40 mg SC DAILY@1000 [facility] Famotidine (Pepcid) 20 mg PO BID [facility] Last Admin: 12/05/18 21:03 Dose: 20 mg Documented by: Fluticasone Propionate (Flonase Nasal [place]) 1 spray NASAL DAILY [facility] Glucagon () 1 mg IM .X1 PRN PRN Reason: Hypoglycemia Levetiracetam (Keppra Tablet) 500 mg PO BID [facility] Last Admin: 12/05/18 21:05 Dose: 500 mg Documented by: Lisinopril (Zestril) 20 mg PO DAILY [facility] Loratadine (Claritin) 10 mg PO DAILY [facility] Meloxicam (Mobic) 7.5 mg PO DAILY [facility] Morphine Sulfate () 2 mg IV Q3H PRN PRN PRN Reason: Pain Score 6-10/10 Multivitamins/Minerals (Multivitamin With Minerals) [facility] Ondansetron HCl (Zofran) 4 mg IV Q8H PRN PRN PRN Reason: NAUSEA/VOMITING Oxycodone HCl (Oxyir) 10 mg PO Q4H PRN PRN PRN Reason: Pain Score 4-5/10 Polyethylene Glycol (Miralax) 17 gm PO DAILY PRN PRN PRN Reason: constpation Zinc Sulfate (Zinc Sulfate) 220 mg PO DAILY [facility] Medical Necessity - Tobacco Use Smoking Status: Never smoker Tobacco Use: Non-smoker Assessment/Plan All Active Problems History of traumatic brain injury (Acute) Closed fracture dislocation of left shoulder (Acute) Chest pain, unspecified (Acute) 43-year-old longterm resident, traumatic brain injury with seizures was admitted with left shoulder pain. Complete history is unobtainable due to impaired cognition due to TBI. 1. Left shoulder inferior dislocation with fracture involving the greater tuberosity proximal humerus status post satisfactory reduction in ED: Orthopedic surgery consult. Pain control. PT and OT. Fall precaution. 2. Traumatic brain injury with history of seizures: On carbamazepine and Keppra 3. Hypertension on lisinopril: 4. Hyponatremia: Admitting sodium 130. Improved to 134. Continue IV fluid normal saline. Clinical Impression(s) from Imaging Studies Chest X-Ray 12/05/18 09:53 IMPRESSION: Elevation of the left hemidiaphragm with mild degree of left basilar atelectasis. Inferior dislocation of the left shoulder joint with a fracture involving the greater tuberosity of the proximal humerus. Shoulder X-Ray 12/05/18 14:47 IMPRESSION: Satisfactory reduction. Laboratory Results 12/05/18 10:36: WBC 13.4 H, RBC 4.52, Hgb 13.7, Hct 40.4, MCV 89.4, MCH 30.3, MCHC 33.9, RDW Std Deviation 40.1, RDW Coeff of Valery 12.3, Plt Count 257, MPV 9.7, Immature Gran % (Auto) 0.400, Neut % (Auto) 91.5 H, Lymph % (Auto) 4.3 L, [place] % (Auto) 3.4, Eos % (Auto) 0.1, Baso % (Auto) 0.3, Absolute Neuts (auto) 12.2 H, Absolute Lymphs (auto) 0.58 L, Nucleated RBC % 0 12/05/18 10:36: Sodium 130 L, Potassium 3.6, Chloride 96 L, Carbon Dioxide 25.0, Anion Gap 9, BUN 7, Creatinine 0.44 L, Estim Creat Clear Calc 162.88, Est GFR (MDRD) Af Amer 201, Est GFR (MDRD) Non-Af 166, BUN/Creatinine Ratio 16.1, Glucose 141 H, Calcium 8.4 L, Troponin I < 0.015 12/06/18 05:50: WBC 7.2, RBC 3.88 L, Hgb 11.8 L, Hct 34.5 L, MCV 88.9, MCH 30.4, MCHC 34.2, RDW Std Deviation 41.1, RDW Coeff of Valery 12.5, Plt Count 228, MPV 10.1, Immature Gran % (Auto) 0.300, Neut % (Auto) 67.9, Lymph % (Auto) 19.5, [place] % (Auto) 9.7, Eos % (Auto) 1.9, Baso % (Auto) 0.7, Absolute Neuts (auto) 4.9, Absolute Lymphs (auto) 1.40, Nucleated RBC % 0 12/06/18 05:50: Sodium 134 L, Potassium 3.9, Chloride 104, Carbon Dioxide 25.0, Anion Gap 5, BUN 6 L, Creatinine 0.35 L, Estim Creat Clear Calc 204.76, Est GFR (MDRD) Af Amer 259, Est GFR (MDRD) Non-Af 214, BUN/Creatinine Ratio 17.2, Glucose 90, Calcium 7.9 L Code Visit Inpatient E&M: 17770 Subs Hosp L2
[2018-12-06 10:55] VITALS: BP 132/97; PULSE 110; RESP 18; TEMP 36.5; O2SAT 99
[2018-12-06] MEDS: Multivitamins,Ther W-Minerals Tablet 1 TABLET PO (11:01)
[2018-12-06] MEDS: Loratadine 10 MG Tablet PO (11:01)
[2018-12-06] MEDS: levETIRAcetam 500 MG Tablet PO ×2 (11:01→21:47)
[2018-12-06] MEDS: Ascorbic Acid 500 MG Tablet PO (11:01)
[2018-12-06] MEDS: carBAMazepine 200 MG Tablet PO ×2 (11:02→21:47)
[2018-12-06] MEDS: Famotidine 20 MG Tablet PO ×2 (11:02→21:47)
[2018-12-06] MEDS: Lisinopril 20 MG Tablet PO (11:02)
[2018-12-06] MEDS: Amantadine 100 MG Capsule PO ×2 (11:02→21:47)
[2018-12-06] MEDS: Meloxicam 7.5 MG Tablet PO (11:02)
[2018-12-06] MEDS: Calcium (Elemental) 500 MG Tablet PO (11:02)
[2018-12-06] MEDS: Enoxaparin 40 MG/0.4 ML Syringe SC (11:03)
[2018-12-06] MEDS: Fluticasone 0.05% 1 SPRAY NASAL.SRY NASAL (11:03)
[2018-12-06] MEDS: Glycerin/Hypromellose/PEG400 15 ml Bottle 1 DRP EACH EYE ×2 (11:04→21:39)
--- NOTE | 2018-12-06 11:30 | CASEMGMT ---
Social Work Note CHRIST met with pt and pt's father Ba. SW introduced self and role at [facility]. PT has TBI, unable to answer questions. Ba states pt got TBI in 1987 and has been in and out of group homes since then. Ba states pt is currently in a [facility] called [facility] but is not happy with the care pt is receiving. Ba states he has contacted [facility] Board of DD as pt has services through the Board and informed the staff of his concerns with the mcc. Ba states that he is hoping to get pt to RU at [facility]. CHRIST asked Ba about pt's previous level of function. Ba states pt is total assist but pt can usually feed herself. Ba states he is having to feed pt now due to pt's arm being in a sling. CHRIST informed Ba that pt is likely not appropriate for rehabilitation as pt is not skillable or is not able to do rehab given pt's condition. CHRIST informed aB that pt will likely need to return to the mcc while the board of DD works on getting pt into a new mcc. Ba states understanding. SW to continue to follow to assist with discharge planning. Maryanne Davis WASHER OFF, PANTOGRAPH I ENGRAVER
--- NOTE | 2018-12-06 11:53 | CON.PCM_ITS ---
Problem List (1) Closed fracture dislocation of left shoulder Status: Acute Qualifiers: Encounter type: initial encounter Qualified Code(s): S42.92XA - Fracture of left shoulder girdle, part unspecified, initial encounter for closed fracture - Consult Date of Consult: 12/06/[address] Ross Reason for consult post reduction of left shoulder dislocation Impression: Post reduction first time left shoulder dislocation Plan 1. Continue all pain medications as prescribed by medicine 2. Physical therapy with passive range of motion, no extreme internal/external rotation. 3. Ice to left shoulder 4. Continue sling with no active range of motion for 2 weeks 5. After 2 weeks patient begin active range of motion without resistance 6. Patient to follow-up with [facility] in 2 weeks call for appointment History Upon entering the room I found patient sitting up in bed, with her mother and father at her side. All questions and history were obtained from the mother and father. Per the father the patient had sustained this injury at the shelter. It was unknown how the injury occurred. The patient has no history of shoulder dislocations in the past. Per the father the patient has extremely high pain tolerance. Because of the head injury, patient has a right-sided deficit, her left hand is her dominant hand. Because of the patient's head injury which was sustained 13 years ago as a child patient is nonverbal. This time patient has no other complaints. I did review and discussed 10 review of systems as well as her pertinent past medical surgical history. Exam Found patient sitting up in bed, awake, with no respiratory distress. Patient had no signs of trauma to the head face or neck. Patient had no pain to palpation to the cervical thoracic spine. Patient had movements of the right arm however weak with poor fine motor control pain no active range of motion was attempted of the left shoulder. 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 No obvious ecchymosis or soft tissue trauma noted to the left shoulder or humeral region. By emergency department notes patient has sustained an anterior dislocation and was displaced upon arrival to the ED. Closed reduction of the dislocation was performed. Imaging studies 3 views show the patient's humerus is seated appropriately within the glenoid region there is no indication of dislocation at this time there appears to be no obvious fractures there is some mild AC joint arthrosis some narrowing of the acromiohumeral space Plan As discussed and outlined above, patient will begin physical therapy with passive range of motion. She will avoid any extreme internal and external rotations. She will continue to wear the sling for comfort. Patient is to come out of the sling 3-4 times a day with flexion extension of the elbow wrist and hand. Patient will avoid any active range of motion for 2 weeks, then will begin active range of motion without resistance for 2 weeks. Patient is to follow-up with [facility] in 2 weeks. Patient will continue all pain medications as prescribed. 60 minutes was spent with review of medical records, review of imaging studies, interviewing patient's and parents, physical examination, discussion with Dr. Brenden Ramirez, and medical decision making.
--- NOTE | 2018-12-06 13:04 | CASEMGMT ---
CHRIST called Corrine Almaraz with [facility] Board of DD, who was listed in paperwork as pt's SSA. Message left. CHRIST then called another number listed on the paperwork for pt for [facility]([phone]), was connected to Karen who is the residential director where this pt is housed. Karen confirms the address of the residential as [address] [place] [address], [id number]. CHRIST clarified w/Karen that pt's SSA is now Rashawn Beckwith, but he is on vacation until the and the covering SSA is Sarah Mtz([phone]). Tricia Barrett, also listed in the informatio for [facility] is the preschool education director. CHRIST spoke w/Karen in regard to pt's care needs. Pt does help w/her own transfers, pushes up on both arms and the staff at the residential then use a gait belt to get her up. As per TIAN's note, pt at this time can only do passive range of motion. PT/OT are pending, but it seems based on this that pt cannot push herself up. As per Karen this residential does not have a delicia. They would not be able to get her up without her assist, and therefore pt may not be able to return to the residential. She states she is not certain how pt's guardian will feel about this. CHRIST explained will call and ask guardian, who is pt's father. CHRIST called pt's father/guardian, message left to call SW back. CHRIST will continue to follow. PT/OT pending, but it is anticipated pt will need SNF short term, will speak w/pt's gather/guardian about where to send a referral. FRIEDA Arevalo
[2018-12-06] MEDS: 0.9% Normal Saline 1,000 ML 75 ML IV (13:13)
[2018-12-06] MEDS: Acetaminophen 325 MG Tablet 650 MG PO ×2 (13:13→21:39)
--- NOTE | 2018-12-06 15:47 | CASEMGMT ---
Social Work Note SW has not received phone call from pt's father Ba to discuss SNF options for pt. At this time of day, SNF placement is not possible. Pt will be at [facility] through the weekend so SNF placement can be initiated on Sunday. Plan: SNF Sunday Maryanne Davis MSW, SHIPWRIGHT SUPERVISOR
[2018-12-06 16:00] VITALS: BP 141/92; PULSE 94; RESP 18; TEMP 36.8; O2SAT 99
[2018-12-06] MEDS: Baclofen 10 MG Tablet PO (21:47)
[2018-12-06 22:00] VITALS: BP 138/93; PULSE 99; RESP 16; TEMP 36.8; O2SAT 98
[2018-12-07] MEDS: Acetaminophen 325 MG Tablet 650 MG PO ×2 (03:35→12:25)
[2018-12-07 04:00] VITALS: BP 150/94; PULSE 93; RESP 16; TEMP 36.8; O2SAT 96
[2018-12-07] MEDS: oxyCODONE 5 MG Tablet 10 MG PO ×2 (07:43→18:20)
[2018-12-07 08:00] VITALS: BP 154/108; PULSE 96; RESP 18; TEMP 36.8; O2SAT 99
[2018-12-07] MEDS: Multivitamins,Ther W-Minerals Tablet 1 TABLET PO (08:13)
[2018-12-07] MEDS: Famotidine 20 MG Tablet PO ×2 (08:14→21:04)
[2018-12-07] MEDS: Ascorbic Acid 500 MG Tablet PO (08:14)
[2018-12-07] MEDS: Lisinopril 20 MG Tablet PO (08:14)
[2018-12-07] MEDS: Loratadine 10 MG Tablet PO (08:14)
[2018-12-07] MEDS: Fluticasone 0.05% 1 SPRAY NASAL.SRY NASAL (08:15)
[2018-12-07] MEDS: levETIRAcetam 500 MG Tablet PO ×2 (08:15→21:05)
[2018-12-07] MEDS: Meloxicam 7.5 MG Tablet PO (08:15)
[2018-12-07] MEDS: Calcium (Elemental) 500 MG Tablet PO (08:16)
[2018-12-07] MEDS: Glycerin/Hypromellose/PEG400 15 ml Bottle 1 DRP EACH EYE ×2 (08:16→21:04)
[2018-12-07] MEDS: Enoxaparin 40 MG/0.4 ML Syringe SC (08:17)
[2018-12-07] MEDS: Amantadine 100 MG Capsule PO ×2 (08:17→21:06)
[2018-12-07] MEDS: carBAMazepine 200 MG Tablet PO ×2 (08:17→21:05)
[2018-12-07 12:28] VITALS: BP 131/93; PULSE 96; RESP 18; TEMP 36.4; O2SAT 99
--- NOTE | 2018-12-07 12:45 | CASEMGMT ---
SOCIAL WORK DISCUSSED CASE WITH PHYSICIAN WHO SPOKE WITH PATIENT'S FATHER ABOUT LONGTERM. PATIENT'S FATHER WAS INQUIRING ABOUT [facility]. PLAN IS FOR SNF. FATHER WANTING FACILITY IN [place]. WILL NEED FOLLOW UP ON SUNDAY. GINNY TOMAS, SALES COMPENSATION ANALYST.
[2018-12-07 18:25] VITALS: BP 155/106; PULSE 98; RESP 18; TEMP 36.6; O2SAT 99
--- NOTE | 2018-12-07 18:35 | PCM.PROGNOTE ---
Patient Problems: Active and Suspected Problems Closed fracture dislocation of left shoulder (Acute) Chest pain, unspecified (Acute) Subjective: Patient was seen and examined today, her parents were in the room during the time of my examination. I discussed her discharge plan with them, I explained to them that the patient would need to go to a skilled care facility, since the parents live in [place], I suggested that we [place] [facility] [place] [facility] [place] and the patient's parents agreed. Patient voices no complaints today. - Physical Exam Vitals/I&O's: Vital Signs Temp Pulse Resp BP Pulse Ox 97.8 F 98 18 155/106 H 99 12/07/18 18:25 12/07/18 18:25 12/07/18 18:25 12/07/18 18:25 12/07/18 18:25 Oxygen Flow Rate (L/min) [3] 4 Oxygen Flow Rate (L/min) [2] 6 Oxygen Flow Rate (L/min) [1 ( 4 Initial Baseline)] Oxygen Flow Rate (L/min) 2 Oxygen Delivery Method [3] Nasal Cannula Oxygen Delivery Method [2] Nasal Cannula Oxygen Delivery Method [1 ( Nasal Cannula Initial Baseline)] Oxygen Delivery Method Room Air Weight: 81.601 kg Body Mass Index (BMI) 27.3 Finger Stick Blood Glucose 77 Intake and Output for Last 24 Hours 12/05/18 12/06/18 12/07/18 23:59 23:59 23:59 Intake Total 1960 / 2400 2520 / 2520 Output Total 300 / 500 200 / 200 Balance 1660 / 1900 2320 / 2320 General: Alert, Cooperative, No apparent distress, Well developed, Well nourished HEENT: Atraumatic, PERRLA, EOMI, Normocephalic Oral: Moist Mucosa Neck: Supple, Trachea Midline, Thyroid Normal Size and Texture Lungs: Clear to auscultation, Normal air movement, No rhonchi, No wheeze, No rales Cardiovascular: Regular rate, Regular Rhythm, Normal S1, Normal S2, No murmurs, No Ectopic Activity, PMI Normal, No rub noted Abdomen: Bowel Sounds Present, Soft, Non Tender, Non-Distended, No hernias noted Extremities: No edema, Capillary Refill Less than 3 Seconds, - - Left arm is in a sling at this time and was not examined Skin: No rashes, No breakdown Musculoskeletal: No Tenderness to Palpation of Joints or Extremities Neurological: Cranial nerves II-XII grossly intact, Neuro grossly intact Psych/Mental Status: - - Patient is alert, she appears in no distress, she appears to have cognitive impairment Current Medications Acetaminophen (Tylenol) 650 mg PO Q6H PRN PRN PRN Reason: Pain Score 1-3/Temp > 100.7 F Last Admin: 12/07/18 12:25 Dose: 650 mg Documented by: Amantadine HCl (Symmetrel) 100 mg PO BID [facility] Last Admin: 12/07/18 08:17 Dose: 100 mg Documented by: Ascorbic Acid (Vitamin C) 500 mg PO DAILY@0800 [facility] Last Admin: 12/07/18 08:14 Dose: 500 mg Documented by: Baclofen (Lioresal) 10 mg PO QHS [facility] Last Admin: 12/06/18 21:47 Dose: 10 mg Documented by: Calcium Carbonate (Os-Fabricio 500) 500 mg PO DAILY [facility] Last Admin: 12/07/18 08:16 Dose: 500 mg Documented by: Carbamazepine (Tegretol) 200 mg PO BID [facility] Last Admin: 12/07/18 08:17 Dose: 200 mg Documented by: Dextrose (D50w Syringe) 0 gm IV X1 PRN; Protocol PRN Reason: Hypoglycemia Diazepam (Diastat Acudial) 10 mg RECTAL UD PRN PRN Reason: SEIZURES Enoxaparin Sodium (Lovenox) 40 mg SC DAILY@1000 [facility] Last Admin: 12/07/18 08:17 Dose: 40 mg Documented by: Famotidine (Pepcid) 20 mg PO BID [facility] Last Admin: 12/07/18 08:14 Dose: 20 mg Documented by: Fluticasone Propionate (Flonase Nasal [place]) 1 spray NASAL DAILY [facility] Last Admin: 12/07/18 08:15 Dose: 1 spray Documented by: Glucagon () 1 mg IM .X1 PRN PRN Reason: Hypoglycemia Levetiracetam (Keppra Tablet) 500 mg PO BID [facility] Last Admin: 12/07/18 08:15 Dose: 500 mg Documented by: Lisinopril (Zestril) 20 mg PO DAILY [facility] Last Admin: 12/07/18 08:14 Dose: 20 mg Documented by: Loratadine (Claritin) 10 mg PO DAILY [facility] Last Admin: 12/07/18 08:14 Dose: 10 mg Documented by: Meloxicam (Mobic) 7.5 mg PO DAILY [facility] Last Admin: 12/07/18 08:15 Dose: 7.5 mg Documented by: Morphine Sulfate () 2 mg IV Q3H PRN PRN PRN Reason: Pain Score 6-10/10 Multivitamins/Minerals (Multivitamin With Minerals) [facility] Last Admin: 12/07/18 08:13 Dose: 1 tablet Documented by: Ondansetron HCl (Zofran) 4 mg IV Q8H PRN PRN PRN Reason: NAUSEA/VOMITING Oxycodone HCl (Oxyir) 10 mg PO Q4H PRN PRN PRN Reason: Pain Score 4-5/10 Last Admin: 12/07/18 18:20 Dose: 10 mg Documented by: Polyethylene Glycol (Miralax) 17 gm PO DAILY PRN PRN PRN Reason: constpation Sodium Chloride () 10 - 40 ml IV UD PRN PRN Reason: SALINE FLUSH Zinc Sulfate (Zinc Sulfate) 220 mg PO DAILY [facility] Last Admin: 12/07/18 08:41 Dose: 220 mg Documented by: Medical Necessity - Tobacco Use Smoking Status: Never smoker Tobacco Use: Non-smoker Assessment/Plan All Active Problems Closed fracture dislocation of left shoulder (Acute) Chest pain, unspecified (Acute) #1 left shoulder inferior dislocation with fracture involving the greater tuberosity of the proximal humerus-status post reduction in the emergency room, orthopedic surgery saw the patient today and has recommended further care, no surgery at this time is contemplated #2 chest pain-resolved at this time, etiology unclear, patient has cognitive impairment and I am unable to harvey information concerning this complaint. #3 hypertension-continue present medication #4 debility-[place] [facility] [place], again I discussed this with the patient's mother and father who were in the room at the time of my examination today. #5 chronic cognitive impairment secondary to history of traumatic brain injury as a teenager-patient currently lives in a care home, it is recommended that she go to a [place] [facility] [place]-term due to her shoulder dislocation. Code Visit Inpatient E&M: 18732 Subs Hosp L2
[2018-12-07 20:56] VITALS: BP 134/88; PULSE 94; RESP 18; TEMP 36.6; O2SAT 97
[2018-12-07] MEDS: Baclofen 10 MG Tablet PO (21:05)
[2018-12-08 06:23] VITALS: BP 146/98; PULSE 99; RESP 18; TEMP 36.8; O2SAT 98
[2018-12-08] MEDS: oxyCODONE 5 MG Tablet 10 MG PO (06:39)
[2018-12-08 09:14] VITALS: BP 148/100; PULSE 91; RESP 18; TEMP 36.8; O2SAT 97
[2018-12-08] MEDS: Enoxaparin 40 MG/0.4 ML Syringe SC (09:19)
[2018-12-08] MEDS: Amantadine 100 MG Capsule PO ×2 (09:19→21:31)
[2018-12-08] MEDS: Calcium (Elemental) 500 MG Tablet PO (09:19)
[2018-12-08] MEDS: carBAMazepine 200 MG Tablet PO ×2 (09:19→21:32)
[2018-12-08] MEDS: Meloxicam 7.5 MG Tablet PO (09:24)
[2018-12-08] MEDS: levETIRAcetam 500 MG Tablet PO ×2 (09:24→21:34)
[2018-12-08] MEDS: Lisinopril 20 MG Tablet PO (09:24)
[2018-12-08] MEDS: Ascorbic Acid 500 MG Tablet PO (09:24)
[2018-12-08] MEDS: Multivitamins,Ther W-Minerals Tablet 1 TABLET PO (09:24)
[2018-12-08] MEDS: Fluticasone 0.05% 1 SPRAY NASAL.SRY NASAL (09:25)
[2018-12-08] MEDS: Famotidine 20 MG Tablet PO ×2 (09:25→21:31)
[2018-12-08] MEDS: Loratadine 10 MG Tablet PO (09:25)
[2018-12-08] MEDS: Glycerin/Hypromellose/PEG400 15 ml Bottle 1 DRP EACH EYE ×2 (09:26→21:29)
[2018-12-08] MEDS: Acetaminophen 325 MG Tablet 650 MG PO ×2 (09:34→16:24)
[2018-12-08] MEDS: Polyethylene Glycol 3350 17 GM PACKET PO (09:44)
[2018-12-08 13:29] VITALS: BP 125/89; PULSE 103; RESP 18; TEMP 36.9; O2SAT 98
--- NOTE | 2018-12-08 13:31 | PCM.PROGNOTE ---
Patient Problems: Active and Suspected Problems Closed fracture dislocation of left shoulder (Acute) Chest pain, unspecified (Acute) Subjective: Patient was seen and examined today, she is seated in a chair and voices no complaints to this examiner. Patient's family members are not in the room during the time of my examination. - Physical Exam Vitals/I&O's: Vital Signs Temp Pulse Resp BP Pulse Ox 98.2 F 91 18 148/100 H 97 12/08/18 09:14 12/08/18 09:14 12/08/18 09:14 12/08/18 09:14 12/08/18 09:14 Oxygen Flow Rate (L/min) [3] 4 Oxygen Flow Rate (L/min) [2] 6 Oxygen Flow Rate (L/min) [1 ( 4 Initial Baseline)] Oxygen Flow Rate (L/min) 2 Oxygen Delivery Method [3] Nasal Cannula Oxygen Delivery Method [2] Nasal Cannula Oxygen Delivery Method [1 ( Nasal Cannula Initial Baseline)] Oxygen Delivery Method Room Air Weight: 81.601 kg Body Mass Index (BMI) 27.3 Finger Stick Blood Glucose 77 Intake and Output for Last 24 Hours 12/06/18 12/07/18 12/08/18 23:59 23:59 23:59 Intake Total 1960 / 2400 2720 / 2720 Output Total 300 / 500 700 / 700 Balance 1660 / 1900 2019 General: Alert, Cooperative, No apparent distress, Well developed HEENT: Atraumatic, PERRLA, EOMI, Normocephalic Oral: Moist Mucosa Neck: Supple, Trachea Midline Lungs: Clear to auscultation, Normal air movement, No rhonchi, No wheeze, No rales Cardiovascular: Regular rate, Regular Rhythm, Normal S1, Normal S2, No murmurs, PMI Normal, No rub noted Abdomen: Bowel Sounds Present, Soft, Non Tender, Non-Distended Extremities: No clubbing, No cyanosis, No edema, Capillary Refill Less than 3 Seconds, - - Left arm is in a sling, this was not removed for examination of the left arm and shoulder Skin: No rashes, No breakdown Musculoskeletal: No Tenderness to Palpation of Joints or Extremities Neurological: Cranial nerves II-XII grossly intact, Neuro grossly intact, Sensory exam intact to light touch and pain Psych/Mental Status: - - Patient has obvious cognitive impairment Current Medications Acetaminophen (Tylenol) 650 mg PO Q6H PRN PRN PRN Reason: Pain Score 1-3/Temp > 100.7 F Last Admin: 12/08/18 09:34 Dose: 650 mg Documented by: Amantadine HCl (Symmetrel) 100 mg PO BID [facility] Last Admin: 12/08/18 09:19 Dose: 100 mg Documented by: Ascorbic Acid (Vitamin C) 500 mg PO DAILY@0800 [facility] Last Admin: 12/08/18 09:24 Dose: 500 mg Documented by: Baclofen (Lioresal) 10 mg PO QHS [facility] Last Admin: 12/07/18 21:05 Dose: 10 mg Documented by: Calcium Carbonate (Os-Fabricio 500) 500 mg PO DAILY [facility] Last Admin: 12/08/18 09:19 Dose: 500 mg Documented by: Carbamazepine (Tegretol) 200 mg PO BID [facility] Last Admin: 12/08/18 09:19 Dose: 200 mg Documented by: Dextrose (D50w Syringe) 0 gm IV X1 PRN; Protocol PRN Reason: Hypoglycemia Diazepam (Diastat Acudial) 10 mg RECTAL UD PRN PRN Reason: SEIZURES Enoxaparin Sodium (Lovenox) 40 mg SC DAILY@1000 [facility] Last Admin: 12/08/18 09:19 Dose: 40 mg Documented by: Famotidine (Pepcid) 20 mg PO BID [facility] Last Admin: 12/08/18 09:25 Dose: 20 mg Documented by: Fluticasone Propionate (Flonase Nasal [place]) 1 spray NASAL DAILY [facility] Last Admin: 12/08/18 09:25 Dose: 1 spray Documented by: Glucagon () 1 mg IM .X1 PRN PRN Reason: Hypoglycemia Levetiracetam (Keppra Tablet) 500 mg PO BID [facility] Last Admin: 12/08/18 09:24 Dose: 500 mg Documented by: Lisinopril (Zestril) 20 mg PO DAILY [facility] Last Admin: 12/08/18 09:24 Dose: 20 mg Documented by: Loratadine (Claritin) 10 mg PO DAILY [facility] Last Admin: 12/08/18 09:25 Dose: 10 mg Documented by: Meloxicam (Mobic) 7.5 mg PO DAILY [facility] Last Admin: 12/08/18 09:24 Dose: 7.5 mg Documented by: Morphine Sulfate () 2 mg IV Q3H PRN PRN PRN Reason: Pain Score 6-10/10 Multivitamins/Minerals ([facility] With [facility]erals) [facility] Last Admin: 12/08/18 09:24 Dose: 1 tablet Documented by: Ondansetron HCl (Zofran) 4 mg IV Q8H PRN PRN PRN Reason: NAUSEA/VOMITING Oxycodone HCl (Oxyir) 10 mg PO Q4H PRN PRN PRN Reason: Pain Score 4-5/10 Last Admin: 12/08/18 06:39 Dose: 10 mg Documented by: Polyethylene Glycol (Miralax) 17 gm PO DAILY PRN PRN PRN Reason: constpation Last Admin: 12/08/18 09:44 Dose: 17 gm Documented by: Sodium Chloride () 10 - 40 ml IV UD PRN PRN Reason: SALINE FLUSH Zinc Sulfate (Zinc Sulfate) 220 mg PO DAILY [facility] Last Admin: 12/08/18 09:25 Dose: 220 mg Documented by: Medical Necessity - Tobacco Use Smoking Status: Never smoker Tobacco Use: Non-smoker Assessment/Plan All Active Problems Closed fracture dislocation of left shoulder (Acute) Chest pain, unspecified (Acute) #1 left shoulder inferior dislocation with fracture involving the greater tuberosity of the proximal humerus-status post reduction in the emergency room, continue PT and OT, again patient will need short-term placement in a group home facility #2 chest pain-resolved at this time, etiology unclear, patient has cognitive impairment and I am unable to harvey information concerning this complaint. #3 hypertension-continue present medication #4 debility-again, it is planned that the patient will go to a group home facility for temporary placement after obtaining approval from an extended care facility. #5 chronic cognitive impairment secondary to history of traumatic brain injury as a teenager-patient currently lives in a intermediate, it is recommended that she go to a group home facility short-term due to her shoulder dislocation. It may be possible to arrange for this tomorrow #6 chronic blindness Code Visit Inpatient E&M: 92459 Subs Hosp L2
--- NOTE | 2018-12-08 13:45 | NURSING ---
Sitting in chair visiting with Father. This nurse asked when the last time patient had a BM. Father stated that he writes it down in a book and the last time that she had a BM was December 01 and has been known to not go for up to 10 days before. Miralax given this morning but this nurse will ask Dr. Lynn for something else.
[2018-12-08] MEDS: Magnesium Citrate 300 ML PO (16:24)
[2018-12-08] MEDS: 0.9% Saline Lock 10 ML Syringe IV (16:24)
[2018-12-08] MEDS: Baclofen 10 MG Tablet PO (21:31)
[2018-12-08] MEDS: Nystatin Powder 15gm Bottle 1 APPLIC TOPICAL (21:32)
[2018-12-08 21:41] VITALS: BP 143/94; PULSE 107; RESP 18; TEMP 36.6; O2SAT 98
[2018-12-09] MEDS: oxyCODONE 5 MG Tablet 10 MG PO (05:11)
[2018-12-09 05:18] VITALS: BP 138/87; PULSE 104; RESP 18; TEMP 36.7; O2SAT 99
[2018-12-09 07:34] VITALS: BP 138/105; PULSE 91; RESP 12; TEMP 36.6; O2SAT 91
[2018-12-09] MEDS: Ascorbic Acid 500 MG Tablet PO (08:24)
[2018-12-09] MEDS: Multivitamins,Ther W-Minerals Tablet 1 TABLET PO (08:24)
[2018-12-09 08:45] VITALS: PULSE 112
[2018-12-09 10:11] VITALS: PULSE 112; O2SAT 98
[2018-12-09] MEDS: Fluticasone 0.05% 1 SPRAY NASAL.SRY NASAL (11:01)
[2018-12-09] MEDS: Glycerin/Hypromellose/PEG400 15 ml Bottle 1 DRP EACH EYE (11:01)
[2018-12-09] MEDS: Meloxicam 7.5 MG Tablet PO (11:01)
[2018-12-09] MEDS: Loratadine 10 MG Tablet PO (11:02)
[2018-12-09] MEDS: Lisinopril 20 MG Tablet PO (11:02)
[2018-12-09] MEDS: Amantadine 100 MG Capsule PO (11:02)
[2018-12-09] MEDS: Famotidine 20 MG Tablet PO (11:03)
[2018-12-09] MEDS: Calcium (Elemental) 500 MG Tablet PO (11:03)
[2018-12-09] MEDS: Enoxaparin 40 MG/0.4 ML Syringe SC (11:03)
[2018-12-09] MEDS: Nystatin Powder 15gm Bottle 1 APPLIC TOPICAL (11:03)
[2018-12-09] MEDS: levETIRAcetam 500 MG Tablet PO (11:04)
[2018-12-09 11:21] VITALS: BP 127/101; PULSE 114; RESP 14; TEMP 36.6; O2SAT 97
--- NOTE | 2018-12-09 12:05 | CASEMGMT ---
Addendum entered by Maryanne Davis 12/09/18 15:40: CHRIST faxed completed discharge paperwork to Nisha at [facility] including transfer to extended care facility, signed medication list and any scripts. Original in SNF folder and copy on pt's chart. CHRIST completed [facility] in [facility]. Original in SNF folder and copy on pt's chart. CHRIST placed a call to Nisha at [facility] and updated her on transportation time. RN updated on transportation time. CHRIST placed a call to Karen at [facility] and updated her that pt will be discharged to [facility] today for short term rehabilitation. Plan: [facility] skilled with pt's father transporting around 4:00-5:00pm ERICA Kruger Addendum entered by Maryanne Davis 12/09/18 13:34: SW received message from Nisha at [facility] stating she is able to accept pt today. Physician updated. CHRIST placed a call to pt's father Ba and updated him on approval to go to [facility]. Ba states he will be at [facility] around 4:00-5:00pm to transport pt. Physician updated. Original Note: Social Work Note SW received message from pt's father/guardian Ba stating he would like pt to go to [facility] in [place] as he lives in [place]. CHRIST placed a call to Ba and updated him on referral process. Ba states understanding, states he will be able to transport pt at discharge. CHRIST placed a call to [facility] and spoke with Nisha and provided referral. CHRIST faxed referral. Plan: [facility] today pending acceptance ERICA Kruger
--- NOTE | 2018-12-09 14:28 | PCM.TXEXTCAR ---
- Diet 12/05/18 16:34 Diet: Cardiac/Low Cholesterol Food consistency:: Regular Liquid Consistency:: Regular/Thin Is pt able to select menu?: No - Wound(s) LEFT OUTER GREAT TOE Wound Type: Abrasion - Therapies Weight Bearing: Full weight bearing Physical Therapy: Eval and Treat Occupational Therapy: Eval and Treat - Problem/Diagnosis (1) Closed fracture dislocation of left shoulder Status: Acute Comment: fracture involving the greater tuberosity of the proximal humerus Current Visit: Yes (2) Blind in both eyes Status: Chronic Current Visit: No (3) Traumatic brain injury Status: Chronic Comment: remote history Current Visit: No (4) Seizure disorder Status: Chronic Current Visit: No - Allergies/Procedures Done in Hospital Allergies/Adverse Reactions: Allergies phenytoin sodium [From Dilantin] Allergy (Verified 06/21/16 04:18) Unknown phenytoin sodium extended [From Dilantin] Allergy (Verified 06/21/16 04:18) Unknown Sulfa (Sulfonamide Antibiotics) Allergy (Verified 06/21/16 04:18) Unknown - Type of Care/Length of Stay Estimated LOS: Convalescent Care Less Than 30 days Type of Care Needed: Skilled Rehab Potential: Good Prognosis: Good - Additional Orders/Day of Discharge Additional Orders: Physical therapy with passive range of motion, no extreme internal/external rotation. Continue sling with no active range of motion for 2 weeks, After 2 weeks patient begin active range of motion without resistance. Patient to follow-up with [facility] in 2 weeks call for appointment- Dr. Brenden Ramirez H&P will serve as current which was dated: 12/05/18 Day of Discharge: 12/09/18 - Follow Up Care Primary Care Physician: Mary Nuñez MD [Primary Care Provider] - Please follow up with your Primary Care Physician in: in 3 weeks Please Follow Up With: Brenden Ramirez, DO When: in two weeks
[2018-12-09] MEDS: carBAMazepine 200 MG Tablet PO (15:13)
[2018-12-09] MEDS: Menthol/Lanolin/Calamine/Znox 113 GM Tube 1 APPLIC TOPICAL (15:13)
[2018-12-09 17:13] VITALS: BP 138/106; PULSE 111; RESP 18; TEMP 37.1; O2SAT 98
--- NOTE | 2018-12-10 08:26 | PCM.DC.SUM ---
Discharge Date and Diagnosis Date of Admission: 12/05/18 Date of Discharge: 12/09/18 - Primary Discharge Diagnosis #1 left shoulder inferior dislocation with fracture involving the greater tuberosity of the proximal humerus-status post reduction in the emergency room #2 chest pain- etiology unclear #3 hypertension #4 debility #5 chronic cognitive impairment secondary to history of traumatic brain injury-remote #6 chronic blindness - Secondary Discharge Diagnosis Chronic Problems History of traumatic brain injury (Chronic) Lumbar degenerative disc disease (Chronic) Lumbar radiculitis (Chronic) Lumbar radiculopathy (Chronic) Menorrhagia (Chronic) Debility (Chronic) Blind in both eyes (Chronic) Traumatic brain injury (Chronic) remote history Seizure disorder (Chronic) Hospital Course and Treatment Operations: None Procedures: None Summary of Care Provided: The patient is a 43 year old F who was seen in the emergency room at [facility] with a chief complaint of left arm pain. Patient was not able to provide any history due to cognitive impairment from a traumatic brain injury that she suffered as a teenager. Work-up in the emergency room revealed the patient to have a dislocated left shoulder-it was theorized that she probably fell dislocating her shoulder but again she could not provide any information. X-rays also showed a fracture involving the greater tuberosity of the proximal humerus. Patient shoulder was reduced in the emergency room, she was admitted to [place] [address] and seen by physical therapy. Discussions were carried out with the patient's mother and father, patient lived in a long term but it was felt that she would require short-term placement at a intermediate facility for recovery of her shoulder dislocation. Arrangements were made for her to go to an extended care facility at the time of discharge from the hospital. On 12/09/2018, patient was seen and examined: On examination she appeared in good health and spirits. Vital signs as documented. Skin warm and dry and without overt rashes. Neck without JVD. Lungs clear. Heart exam notable for regular rhythm, normal sounds and absence of murmurs, rubs or gallops. Abdomen unremarkable and without evidence of organomegaly, masses, or abdominal aortic enlargement. Extremities nonedematous. Neuro: Cranial nerves II through XII are grossly intact, no focal motor deficits were noted, sensation to light touch and pinprick is intact. Psych: Patient is alert, she has blindness, she has cognitive impairment that is obvious on examination. On 12/09/2018, patient was seen and examined and felt to be in stable condition for discharge to an extended care facility. - Physical Exam Vitals/I&O's: Vital Signs Temp Pulse Resp BP Pulse Ox 98.7 F 111 H 18 138/106 H 98 12/09/18 17:13 12/09/18 17:13 12/09/18 17:13 12/09/18 17:13 12/09/18 17:13 Oxygen Flow Rate (L/min) [3] 4 Oxygen Flow Rate (L/min) [2] 6 Oxygen Flow Rate (L/min) [1 ( 4 Initial Baseline)] Oxygen Flow Rate (L/min) 2 Oxygen Delivery Method [3] Nasal Cannula Oxygen Delivery Method [2] Nasal Cannula Oxygen Delivery Method [1 ( Nasal Cannula Initial Baseline)] Oxygen Delivery Method Room Air Weight: 81.601 kg Body Mass Index (BMI) 27.3 Finger Stick Blood Glucose 77 Intake and Output for Last 24 Hours 12/08/18 12/09/18 12/10/18 23:59 23:59 23:59 Intake Total 360 / 360 Output Total 900 / 900 Balance -540 / -540 Home Medications: Medications to take at Discharge Amantadine [Symmetrel] 100 mg PO BID 03/03/13 Ascorbic Acid [Vitamin C] 500 mg PO DAILY@0800 03/03/13 Multivitamins,Ther W-Minerals [Multivitamin With Minerals] 1 tablet PO DAILY 03/03/13 Polyethylene Glycol 3350 [Miralax] 17 gm PO DAILY PRN PRN 03/03/13 Zinc Sulfate (50mg elemental) [Zinc Sulfate] 220 mg PO DAILY 03/03/13 Meloxicam [Mobic] 7.5 mg PO DAILY 05/18/14 [place]-3 Fatty Acids/Fish Oil [Fish Oil 1,000 mg Capsule] 1,000 mg PO DAILY 05/18/14 Ranitidine [Zantac] 150 mg PO BID 05/18/14 Carboxymethylcellulos/Glycerin [Refresh Optive Gel Eye Drops] 1 drop EACH EYE DAILY 05/11/16 Fluticasone 0.05% [Flonase Nasal [place]] 1 spray NASAL DAILY 05/11/16 levETIRAcetam tablet [Keppra tablet] 500 mg PO BID 03/30/17 Baclofen 10 mg PO QHS 07/23/17 Lisinopril 20 mg PO DAILY 07/23/17 Loratadine [Claritin] 10 mg PO DAILY 07/23/17 Calcium Carbonate [[place]-500] 500 mg PO DAILY 12/05/18 Carbamazepine 200 mg PO BID 12/05/18 Peg 400/Hypromellose/Glycerin [Artificial Tears] 1 drp EACH EYE BID 12/05/18 Acetaminophen [Tylenol Tablet] 650 mg PO Q6H PRN PRN tab 12/09/18 Diazepam [Valium] 10 mg RECTAL UD PRN #5 tab 12/09/18 Menthol/Lanolin/Calamine/Znox [Calmoseptine Ointment] 1 applic TOPICAL TID tube 12/09/18 Nystatin Powder [Mycostatin Powder] 1 applic TOPICAL BID bottle 12/09/18 Oxycodone [Oxyir] 5 mg PO Q4H PRN PRN 7 Days #15 tab 12/09/18 Following Prescrptions Were Given to Patient: Oxycodone [Oxyir] 5 mg PO Q4H PRN PRN 7 Days #15 tab PRN Reason: Pain Score 4-5/10 Prescription Printed Diazepam [Valium] 10 mg RECTAL UD PRN #5 tab PRN Reason: Seizures Prescription Printed Primary Care Physician: Mary Nuñez MD [Primary Care Provider] - Please follow up with your Primary Care Physician in: in 3 weeks Please Follow Up With: Brenden Ramirez DO When: in two weeks Disposition: Shelter facility Minutes spent on discharge:: 32 Patient Condition:: Stable Medical Necessity - Tobacco Use Smoking Status: Never smoker Tobacco Use: Non-smoker Meaningful Use Info Meaningful Use Diagnoses (Choose all that apply): None applicable Code Visit Inpatient E&M: 82268 Disch Hosp
== END 2018-12-09 17:30 | disposition skilled nursing facility (03) | DRG 563 ==
LOC: ED 15:15 → MS3 15:36
PROVIDERS: Admitting Provider Student in an Organized Health Care Education/Training Program; Emergency Provider Emergency Medicine; Family Provider Family Medicine; PCP Family Medicine; Referring Provider Student in an Organized Health Care Education/Training Program; Visit Provider Internal Medicine
DX: S42.252A Displaced fracture of greater tuberosity of left humerus, initial encounter for closed fracture (principal); E87.1 Hypo-osmolality and hyponatremia; R56.1 Post traumatic seizures; S06.9X0S Unspecified intracranial injury without loss of consciousness, sequela; I10 Essential (primary) hypertension; R53.1 Weakness; H54.7 Unspecified visual loss; R41.89 Other symptoms and signs involving cognitive functions and awareness; R07.9 Chest pain, unspecified; R53.81 Other malaise
CPT/HCPCS: 36415; 71045; 73030; 80048; 84484; 85025; 93005; 97162; 97166; 97530; 99152; 99285; J7030; A4216

== ENCOUNTER → 2019-08-19 14:59 | Outpatient (CLI) | payer MEDICARE, OTHER, MEDICAID, SELFPAY ==
[2018-12-05 16:35] VITALS: BMI 27.3
[2019-08-19 18:10] LABS: Anion Gap 9 (5-15); BUN 13 mg/dL (7-18); BUN/Creat Ratio 21.9 RATIO (10-20); Calcium,Total 8.9 mg/dL (8.5-10.1); Chloride 92 mmol/L (98-107); Creatinine, Serum 0.59 mg/dL (0.55-1.02); EST Glomerular Filtration Rate 116 mL/min (>60); Est Glom Filt Rate - Afr Amer 140 mL/min (>60); Glucose 76 mg/dL (74-106); Potassium 4.4 mmol/L (3.5-5.1); Sodium Level 127 mmol/L (136-145)
== END ==
PROVIDERS: PCP Family Medicine; Visit Provider Family Medicine
DX: E87.1 Hypo-osmolality and hyponatremia (principal)
CPT/HCPCS: 36415; 80048

== ENCOUNTER → 2019-09-24 14:15 | Outpatient (CLI) | payer MEDICARE, OTHER, MEDICAID, SELFPAY ==
[2018-12-05 16:35] VITALS: BMI 27.3
[2019-09-24 18:05] LABS: Anion Gap 3 (5-15); BUN 10 mg/dL (7-18); BUN/Creat Ratio 20.9 RATIO (10-20); Chloride 97 mmol/L (98-107); Creatinine, Serum 0.48 mg/dL (0.55-1.02); EST Glomerular Filtration Rate 149 mL/min (>60); Est Glom Filt Rate - Afr Amer 180 mL/min (>60); Glucose 104 mg/dL (74-106); Potassium 4.1 mmol/L (3.5-5.1); Sodium Level 129 mmol/L (136-145)
== END ==
PROVIDERS: PCP Family Medicine; Referring Provider Family Medicine; Visit Provider Family Medicine
DX: I10 Essential (primary) hypertension (principal)
CPT/HCPCS: 36415; 80048

== ENCOUNTER → 2019-10-08 10:13 | Outpatient (CLI) | payer MEDICARE, OTHER, MEDICAID, SELFPAY ==
[2018-12-05 16:35] VITALS: BMI 27.3
[2019-10-08 11:36] LABS: Anion Gap 3 (5-15); BUN 6 mg/dL (7-18); BUN/Creat Ratio 11.5 RATIO (10-20); Calcium,Total 8.4 mg/dL (8.5-10.1); Chloride 96 mmol/L (98-107); Creatinine, Serum 0.52 mg/dL (0.55-1.02); EST Glomerular Filtration Rate 135 mL/min (>60); Est Glom Filt Rate - Afr Amer 163 mL/min (>60); Glucose 81 mg/dL (74-106); Potassium 4.5 mmol/L (3.5-5.1); Sodium Level 128 mmol/L (136-145)
[2019-10-08 12:57] LABS: Color, Urine Yellow (Yellow); Glucose, Dipstick Normal (Normal); Ketone-Dipstick Negative (Negative); Leukocyte Esterase-Dipstick Negative /ul (Negative); Nitrite-Dipstick Negative (Negative); Occult Blood-Urine Negative /ul (Negative); Protein-Dipstick Negative (Negative); Urine Bilirubin Dipstick Negative (Negative); Urine Clarity Sl. Cloudy (Clear); Urine Urobilinogen Normal (Normal)
== END ==
PROVIDERS: PCP Family Medicine; Referring Provider Internal Medicine Nephrology; Visit Provider Internal Medicine Nephrology
DX: E87.1 Hypo-osmolality and hyponatremia (principal)
CPT/HCPCS: 36415; 80048; 81002; 83935

== ENCOUNTER → 2019-10-10 10:08 | Outpatient (CLI) | payer MEDICARE, OTHER, MEDICAID, SELFPAY ==
[2018-12-05 16:35] VITALS: BMI 27.3
== END ==
PROVIDERS: PCP Family Medicine; Referring Provider Internal Medicine Nephrology; Visit Provider Internal Medicine Nephrology
DX: E87.1 Hypo-osmolality and hyponatremia (principal)

== ENCOUNTER → 2019-11-11 08:03 | Outpatient (CLI) | payer MEDICARE, OTHER, MEDICAID, SELFPAY ==
[2018-12-05 16:35] VITALS: BMI 27.3
[2019-11-11 09:09] LABS: Anion Gap 3 (5-15); BUN 11 mg/dL (7-18); BUN/Creat Ratio 18.5 RATIO (10-20); Calcium,Total 8.3 mg/dL (8.5-10.1); Chloride 99 mmol/L (98-107); Creatinine, Serum 0.59 mg/dL (0.55-1.02); EST Glomerular Filtration Rate 116 mL/min (>60); Est Glom Filt Rate - Afr Amer 140 mL/min (>60); Glucose 90 mg/dL (74-106); Potassium 4.4 mmol/L (3.5-5.1); Sodium Level 128 mmol/L (136-145)
== END ==
PROVIDERS: PCP Family Medicine; Visit Provider Internal Medicine Nephrology
DX: E87.1 Hypo-osmolality and hyponatremia (principal)
CPT/HCPCS: 36415; 80048

== ENCOUNTER → 2019-11-19 | Outpatient (CLI) | payer MEDICARE, OTHER, MEDICAID, SELFPAY ==
[2018-12-05 16:35] VITALS: BMI 27.3
[2019-11-19 13:36] LABS: Osmolality, Urine 396 mOsm/KG; Urine Sodium 85 mmol/L (Not Establ.)
== END | disposition home or self-care (01) ==
LOC: LABSPEC 11:50
PROVIDERS: PCP Family Medicine; Referring Provider Internal Medicine Nephrology; Visit Provider Internal Medicine Nephrology
DX: E87.1 Hypo-osmolality and hyponatremia (principal)
CPT/HCPCS: 83935; 84300

== ENCOUNTER 2019-12-22 08:17 | Outpatient (RCR) | payer MEDICARE, OTHER, MEDICAID, SELFPAY ==
[2018-12-05 16:35] VITALS: BMI 27.3
[2019-12-22 09:29] LABS: Anion Gap 5 (5-15); BUN 9 mg/dL (7-18); BUN/Creat Ratio 13.6 RATIO (10-20); Calcium,Total 9.1 mg/dL (8.5-10.1); Chloride 101 mmol/L (98-107); Creatinine, Serum 0.66 mg/dL (0.55-1.02); EST Glomerular Filtration Rate 102 mL/min (>60); Est Glom Filt Rate - Afr Amer 124 mL/min (>60); Glucose 89 mg/dL (74-106); Potassium 4.6 mmol/L (3.5-5.1); Sodium Level 133 mmol/L (136-145)
== END 2019-12-22 18:00 | disposition home or self-care (01) ==
LOC: LAB 08:17
PROVIDERS: PCP Family Medicine; Referring Provider Internal Medicine Nephrology; Visit Provider Internal Medicine Nephrology
DX: E87.1 Hypo-osmolality and hyponatremia (principal)
CPT/HCPCS: 36415; 80048

== ENCOUNTER 2020-01-21 08:11 | Outpatient (RCR) | payer MEDICARE, OTHER, MEDICAID, SELFPAY ==
[2018-12-05 16:35] VITALS: BMI 27.3
[2020-01-21 10:20] LABS: Anion Gap 4 (5-15); BUN 11 mg/dL (7-18); BUN/Creat Ratio 15.4 RATIO (10-20); Calcium,Total 8.9 mg/dL (8.5-10.1); Chloride 102 mmol/L (98-107); Creatinine, Serum 0.71 mg/dL (0.55-1.02); EST Glomerular Filtration Rate 94 mL/min (>60); Est Glom Filt Rate - Afr Amer 113 mL/min (>60); Glucose 87 mg/dL (74-106); Potassium 4.3 mmol/L (3.5-5.1); Sodium Level 135 mmol/L (136-145)
== END 2020-01-21 18:00 | disposition home or self-care (01) ==
LOC: MTLAB 08:11
PROVIDERS: PCP Family Medicine; Referring Provider Internal Medicine Nephrology; Visit Provider Internal Medicine Nephrology
DX: E87.1 Hypo-osmolality and hyponatremia (principal)
CPT/HCPCS: 36415; 80048

== ENCOUNTER 2020-02-19 08:28 | Outpatient (RCR) | payer MEDICARE, OTHER, MEDICAID, SELFPAY ==
[2018-12-05 16:35] VITALS: BMI 27.3
[2020-02-19 10:53] LABS: Anion Gap 4 (5-15); BUN 13 mg/dL (7-18); Calcium,Total 8.8 mg/dL (8.5-10.1); Chloride 105 mmol/L (98-107); Creatinine, Serum 0.65 mg/dL (0.55-1.02); EST Glomerular Filtration Rate 104 mL/min (>60); Est Glom Filt Rate - Afr Amer 126 mL/min (>60); Glucose 86 mg/dL (74-106); Potassium 4.4 mmol/L (3.5-5.1); Sodium Level 135 mmol/L (136-145)
== END 2020-02-19 18:00 | disposition home or self-care (01) ==
LOC: MTLAB 08:28
PROVIDERS: PCP Family Medicine; Referring Provider Internal Medicine Nephrology; Visit Provider Internal Medicine Nephrology
DX: E87.1 Hypo-osmolality and hyponatremia (principal)
CPT/HCPCS: 36415; 80048

== ENCOUNTER → 2020-03-24 12:34 | Outpatient (CLI) | payer MEDICARE, OTHER, MEDICAID, SELFPAY ==
[2018-12-05 16:35] VITALS: BMI 27.3
[2020-03-24 15:43] LABS: Anion Gap 5 (5-15); BUN 11 mg/dL (7-18); BUN/Creat Ratio 18.2 RATIO (10-20); Calcium,Total 9.3 mg/dL (8.5-10.1); Chloride 100 mmol/L (98-107); Cholesterol 178 mg/dL (200); EST Glomerular Filtration Rate 113 mL/min (>60); Est Glom Filt Rate - Afr Amer 137 mL/min (>60); Glucose 81 mg/dL (74-106); High Density Lipoprotein 55 mg/dL; Potassium 4.6 mmol/L (3.5-5.1); Sodium Level 133 mmol/L (136-145); Triglycerides 66 mg/dL; Very Low Density Lipoprotein 13 mg/dL (5-40)
== END ==
PROVIDERS: PCP Family Medicine; Referring Provider Family Medicine; Visit Provider Family Medicine
DX: I10 Essential (primary) hypertension (principal)
CPT/HCPCS: 36415; 80048; 80061

== ENCOUNTER 2020-05-25 10:30 | Outpatient (RCR) | payer MEDICARE, OTHER, MEDICAID, SELFPAY ==
[2018-12-05 16:35] VITALS: BMI 27.3
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
--- NOTE | 2020-04-29 12:26 | HP.PTREVAL ---
Dr. Mary Nuñez MD, It has been my pleasure to treat KARL COOPER over the last 9 visits for LE weakness and TBI. Please see the progress note below for an update on the physical therapy plan of care! 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 Tomahawk Weapon System Operator says she pivot tranasfer easier and safer. standing better but still struggle with the right knee. Jazmyne clinical secretary with her today and says wants to work on homework at home adn f/u in 4 weeks Objective/Function: Pivot trasnfer mat to chair is mod A 1 today, needs asssit getting to stand and then moving R LE BW. Otherwise does well. Stand from chair iwth arms is Min A to walker and stadn at walker with Min A. Again some help moving feet mostly r BW to mat table. Stood 60+ seconds 2x after her workout today with Min A once standing for balance. Sitting unsupported with much improved posture, head tilts left slightly still 10 degrees and slumps L in trunk but 50+% improved from eval today. Overall doing well and clinical secretary wants to cotninue with below HEP at home and f/u in one month to ensure cotninued progression whcih is appropriate based on patients functional level and prognosis for improvement. Plan Plan: f/u 4 weeks for trasnfer adn stand and sit posture check adn d/c . To call prior if concerns. Goals Goal 1:: supine to sit with Min A via sidelie adn roll toeither side I Goal Time Frame: 4-6 Weeks Goal Progress: Goal Met Goal 2:: Sit to stand with Min A Goal Time Frame: 4-6 Weeks Goal Progress: met with arms of chair Goal 3:: Stand at walker or bar for 5 minutes being conscious of hip positioning with CGA Goal Time Frame: 4-6 Weeks Goal Progress: Progressing Goal 4:: I approp functional HEP with his caretakers for rolling, sitting unsupported and pivot trasnfer adn stand ex. Goal Time Frame: 4-6 Weeks Goal Progress: Goal Met Anticipated Interventions Patient/Client Instruction: Educate patient on: Condition, Plan of Care For the Purpose of:: To improve gait and locomotor functions Therapeutic Exercise to Include: Postural training, Gait and locomotor training For the Purpose of:: To improve muscle performance and motor function, To increase tolerance to activity/condition/position, To improve gait and locomotor functions Please do not hesitate to contact me at [phone] by phone or if you have questions or concerns regarding this new plan of care! Sincerely, Garth Walker, DPT, OCS, CSCS
--- NOTE | 2020-05-25 11:07 | HP.PTDCSUM_ITS ---
It has been my pleasure to treat KARL COOPER referred by Dr. Mary Nuñez MD, with the diagnosis of LE weakness and TBI for a total of 10 visit(s). Discharge Date: 05/25/20 Please see the following information for a summary of their discharge status. Subjective: Pt says she has been OK. 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 She stands sometimes Transfers going well at home. % Improvement: 50 Objective/Function: Sit to stadn with Min A and VC at walker adn stood 2 minutes without hands on assist but pelvis moved L. pivot transfer Min A to stand and mod to move feet adn maintain stance adn min A to sit. Needs help with LE lifting onto table. rolls B with min to mod A. supine to sit with mod a at LE. Overall maintaining at home. Goal 1:: supine to sit with Min A via sidelie adn roll toeither side I Goal Progress: Goal Met Goal 2:: Sit to stand with Min A Goal Progress: met with arms of chair Goal 3:: Stand at walker or bar for 5 minutes being conscious of hip positioning with CGA Goal Progress: 2 minutes today. Goal 4:: I approp functional HEP with his caretakers for rolling, sitting unsupp orted and pivot trasnfer adn stand ex. Goal Progress: Goal Met Plan: d/c If there are questions or concerns regarding this patient's physical therapy, please feel free to call me at [phone]. Thank you for the referral of this patient. Sincerely, Garth Walker, DPT, OCS, CSCS
== END 2020-05-25 19:00 | disposition home or self-care (01) ==
LOC: PT 10:30
PROVIDERS: PCP Family Medicine; Referring Provider Family Medicine; Visit Provider Family Medicine
DX: R29.898 Other symptoms and signs involving the musculoskeletal system (principal); Z87.820 Personal history of traumatic brain injury
CPT/HCPCS: 97110; 97163; 97164

== ENCOUNTER → 2021-11-03 | Outpatient (CLI) | payer MEDICARE, OTHER, MEDICAID, SELFPAY ==
--- NOTE | 2021-11-03 12:17 | BD_ITS ---
STUDY: DUAL ENERGY X-RAY ABSORPTIOMETRY / DXA REASON FOR EXAM: Female, 46 years old. 733.00OsteoporosisBONE DENSITY REASON FOR EXAM TECHNIQUE: Bone Mineral Density (BMD) measurements of lumbar spine and right hip were obtained. COMPARISON: Comparison is made with prior study dated 09/12/2017. FINDINGS: Lumbar Spine (L1-L4): g/cm2 (1.019) / T-score (-0.3) / Z-score (0.4) Findings are suggestive of normal bone density with a low fracture risk. Right Femur Total: g/cm2 (0.698) / T-score (-2.0) / Z-score (-1.6) Right Femoral Neck: g/cm2 (0.60) / T-score (-2.2) / Z-score (-1.6) The T-Scores on the most recent prior examination were: Lumbar Spine (L1-L4): There has been improvement of bone density since the previous examination. Right Femur Total: which represents an improvement of 6.2%. BD/Dexa Bone Density Study IMPRESSION: The patient is considered osteopenic as outlined below according to World Shamar Organization (WHO) criteria with a high fracture risk. There has been improvement of bone density since the previous examination. Reference Information: The T-score is the number of standard deviations above or below the standard which is normal for young adults at their peak bone mineral density. The World Health Organization (WHO) interprets the T-scores as follows: Above -1 Normal bone density Between -1 and -2.5 Osteopenia Equal to / or below -2.5 Osteoporosis As a practical clinical guideline, osteopenia may be graded as follows: Mild -1 through -1.5 Moderate -1.6 through -2.0 Severe -2.1 through -2.4 The Z-score is the number of standard deviations above or below age-matched controls. A Z-score of less than -1.5 would be considered abnormal. References: 1. NIH Osteoporosis and Related Bone Diseases www osteo.org 2. International Society for Clinical Densitometry www iscd.org 3. National Osteoporosis Foundation www nof.org Electronically Signed: Garcia Green MD at 13:58 EDT ,
== END | disposition home or self-care (01) ==
PROVIDERS: PCP Family Medicine; Visit Provider Family Medicine
DX: M81.0 Age-related osteoporosis without current pathological fracture (principal)
CPT/HCPCS: 77080

== ENCOUNTER 2022-07-08 21:51 | Emergency (ER) | payer MEDICARE, MEDICAID, SELFPAY ==
[2022-07-08 21:51] VITALS: BP 117/80; PULSE 92; RESP 19; TEMP 35.9; O2SAT 98; BMI 29.2
--- NOTE | 2022-07-08 22:22 | EX.ED.DYSGE1 ---
HPI History of Present Illness Chief Complaint: Abn Labs Narrative Narrative: 46-year-old female with history of traumatic brain injury, epilepsy, hyponatremia presenting with her father out of concern that she has had a low sodium. He noted that she has a history of [place] seizures which she has not noted in years but she has had some episodes where she was staring off today and drooling. She seemed confused when she came back around and then would come back to baseline. Patient's father states that she he has been giving her supplemental electrolyte drinks and protein at her long-term. She was previously at a correction but ended up having to transition to a long-term. He states he does not believe she is getting all of the supplements that she needs. He states that her sodium was 135 last week and is now down to 130. He is concerned about seizures. He has not noticed any tonic-clonic seizures. He states he does not know if she is incontinent or not because he states the long-term puts everybody there in diapers. She has distantly had a UTI. No fevers at the long-term. He is at baseline currently for him. He states that per the labs that he was told about on the phone that her sodium was 130 and it appeared that she had some dehydration. [facility] Medical History Seizures Traumatic brain injury Home Medications amantadine HCl 100 mg capsule 100 mg PO BID 03/03/13 [History Last Taken 12/05/18] ascorbic acid (vitamin C) 500 mg tablet (Vitamin C) 500 mg PO DAILY@0800 03/03/13 [History Last Taken 12/05/18] multivitamin,ry-zpqs-seehohsy 27 mg-0.4 mg tablet (Therems-M) 1 tab PO DAILY 03/03/13 [History Last Taken 12/05/18] polyethylene glycol 3350 17 gram oral powder packet 17 g PO DAILY PRN PRN constpation 03/03/13 [History Last Taken 03/24/15 08:00] zinc sulfate 50 mg zinc (220 mg) capsule 220 mg PO DAILY 03/03/13 [History Last Taken 12/05/18] Ranitidine [Zantac] 150 mg PO BID 05/18/14 [History Last Taken 12/05/18] meloxicam 7.5 mg tablet 7.5 mg PO DAILY 05/18/14 [History Last Taken 12/05/18] omega-3 fatty acids-fish oil 340 mg-1,000 mg capsule (Fish Oil) 1,000 mg PO DAILY 05/18/14 [History Last Taken 12/05/18] carboxymethylcellulose 1 %-glycerin 0.9 % eye gel drops (Refresh Optive) 1 drp DAILY 05/11/16 [History Last Taken 12/04/18] fluticasone propionate 50 mcg/actuation nasal spray,suspension 1 spray DAILY 05/11/16 [History Last Taken 12/05/18] levetiracetam 500 mg tablet 500 mg PO BID 05/11/16 [History Last Taken 12/05/18] baclofen 10 mg tablet 10 mg PO QHS 07/23/17 [History Last Taken 12/04/18] lisinopril 20 mg tablet 20 mg PO DAILY 07/23/17 [History Last Taken 12/05/18] loratadine 10 mg tablet (Allergy Relief (loratadine)) 10 mg PO DAILY 07/23/17 [History Last Taken 12/05/18] calcium carbonate 500 mg calcium (1,250 mg) tablet 500 mg PO DAILY 12/05/18 [History Last Taken 12/05/18] carbamazepine 200 mg tablet 200 mg PO BID 12/05/18 [History Last Taken 12/05/18] peg [id number]-htazyoen 1 %-0.2 %-0.2 % eye drops 1 drp EACH EYE BID 12/05/18 [History Last Taken 12/05/18] acetaminophen 325 mg tablet 650 mg PO Q6H PRN PRN Pain Score 1-3/Temp > 100.7 F 12/09/18 [Rx Last Taken Unknown] diazepam 10 mg tablet 10 mg RECTAL UD PRN Seizures #5 tabs 12/09/18 [Rx Last Taken Unknown] menthol 0.44 %-zinc oxide 20.6 % topical ointment 1 applic topical TID 12/09/18 [Rx Last Taken Unknown] nystatin 100,000 unit/gram topical powder 1 applic topical BID 12/09/18 [Rx Last Taken Unknown] carvedilol 25 mg tablet 25 mg PO DAILY 07/08/22 [History Last Taken Unknown] divalproex 500 mg tablet,delayed release 500 mg PO DAILY 07/08/22 [History Last Taken Unknown] ergocalciferol (vitamin D2) 1,250 mcg (50,000 unit) capsule (Vitamin D2) 50,000 mcg PO DAILY 07/08/22 [History Last Taken Unknown] famotidine 20 mg tablet (Pepcid) 20 mg PO BID 07/08/22 [History Last Taken Unknown] levetiracetam 750 mg tablet 750 mg PO BID 07/08/22 [History Last Taken Unknown] Allergy/AdvReac Type Severity Reaction Status Date / Time phenytoin sodium Allergy Unknown Verified 07/08/22 21:57 [From Dilantin] phenytoin sodium extended Allergy Unknown Verified 07/08/22 21:57 [From Dilantin] Sulfa (Sulfonamide Allergy Unknown Verified 07/08/22 21:57 Antibiotics) Social History Smoking Status: Never smoker ROS ROS ED Constitutional Constitutional ED: Denies chills or fever(s) Eyes Eyes: Denies change in vision or diplopia ENT ENT ED: Denies rhinorrhea Cardiovascular Cardiovascular: Denies chest pain or palpitations Respiratory/Chest Respiratory/Chest: Denies cough or dyspnea Gastrointestinal Gastrointestinal: Denies abdominal pain, nausea or vomiting Genitourinary Genitourinary ED: Denies dysuria Musculoskeletal Musculoskeletal: Denies arthralgias Integumentary Denies abscess or Abrasions Neurologic Neurologic: Denies headache(s) or paresthesias EXAM Physical Exam Const Vital Signs: 07/08/22 21:51 07/08/22 23:10 Temperature 96.6 F L Temperature Source Temporal Pulse Rate 92 93 Respiratory Rate 19 H 16 Blood Pressure 117/80 138/90 H Blood Pressure Mean 92 106 Pulse Ox 98 99 Oxygen Delivery Method Room Air Room Air Positive well nourished General Appearance ED: Negative for pallor HEENT Reports moist mucous membranes Eyes PERRL and EOMs intact bilaterally Resp normal respiratory effort Auscultation: Negative for rales, rhonchi or wheezes Cardio regular rate and regular rhythm Neuro oriented x3 Sensorium / Orientation: alert Psych mental status grossly normal Skin no rashes or lesions noted General Skin Exam: Negative for jaundice or pallor MDM MDM MDM Narrative Medical decision making narrative: Patient presenting with her father out of concern that she might have a low sodium. It was last 130. CBC and CMP as well as urinalysis. Patient acting her baseline. CBC is unremarkable. CMP shows a normal sodium at 136. Other electrolytes are normal. ALT slightly elevated 60, alkaline phosphatase 139. Otherwise unremarkable. Urinalysis negative for infection. Patient father counseled on findings. Patient discharged in stable condition. Impression: 1. History of hyponatremia 2. History of epilepsy Lab Data Attestation: I reviewed the patient's lab results. Labs: Laboratory Results - last 24 hr 07/08/22 07/08/22 07/08/22 22:15 22:15 22:44 WBC Cancelled Corrected WBC Cancelled RBC Cancelled Hgb Cancelled Hct Cancelled MCV Cancelled MCH Cancelled MCHC Cancelled RDW Std Deviation Cancelled RDW Coeff of Valery Cancelled Plt Count Cancelled MPV Cancelled Immature Gran % (Auto) Cancelled Neut % (Auto) Cancelled Lymph % (Auto) Cancelled [place] % (Auto) Cancelled Eos % (Auto) Cancelled Baso % (Auto) Cancelled Absolute Neuts (auto) Cancelled Absolute Lymphs (auto) Cancelled Total Counted Cancelled Neutrophils % (Manual) Cancelled Band Neutrophils % Cancelled Lymphocytes % (Manual) Cancelled Monocytes % (Manual) Cancelled Eosinophils % (Manual) Cancelled Basophils % (Manual) Cancelled Metamyelocytes % Cancelled Myelocytes % Cancelled Promyelocytes % Cancelled Blast Cells % Cancelled Plasma Cell % (Manual) Cancelled Other Cells % Cancelled Nucleated RBC % Cancelled Nucleated RBCs/100 WBC Cancelled Differential Comment Cancelled Diff Path Review Cancelled Hypersegmented Neuts Cancelled Atypical Lymphocytes Cancelled Reactive Lymphocytes Cancelled Smudge Cells Cancelled Toxic Granulation Cancelled Toxic Vacuolation Cancelled Dohle Bodies Cancelled Zeny Rods Cancelled Platelet Estimate Cancelled Plt Morphology Comment Cancelled RBC Morphology Cancelled Polychromasia Cancelled Hypochromasia Cancelled Poikilocytosis Cancelled Basophilic Stippling Cancelled Anisocytosis Cancelled Microcytosis Cancelled Macrocytosis Cancelled Spherocytes Cancelled Sickle Cells Cancelled Target Cells Cancelled Tear Drop Cells Cancelled Ovalocytes Cancelled Stomatocytes Cancelled Fox-Paull[place] Bodies Cancelled Chris Cells Cancelled Bite Cells Cancelled Crenated Cell Cancelled Acanthocytes (Spur) Cancelled Rouleaux Cancelled Schistocytes Cancelled Sodium 136 Potassium 4.3 Chloride 102 Carbon Dioxide 27.0 Anion Gap 7 BUN 14 Creatinine 0.62 Estim Creat Clear Calc 107.91 Est GFR (MDRD) Af Amer 132 Est GFR (MDRD) Non-Af 109 BUN/Creatinine Ratio 22.6 H Glucose 95 Calcium 9.1 Total Bilirubin 0.30 AST 28 ALT 60 H Alkaline Phosphatase 139 H Total Protein 7.4 Albumin 3.2 Globulin 4.2 Albumin/Globulin Ratio 0.8 L Urine Color Yellow Urine Clarity Cloudy Urine pH 8.0 Ur Specific Union 1.010 Urine Protein 15 H Urine Glucose (UA) Normal Urine Ketones Negative Urine Occult Blood 10 H Urine Nitrite Negative Urine Bilirubin Negative Urine Urobilinogen Normal Ur Leukocyte Esterase 100 H Urine RBC 0-5 SEEN Urine WBC 0-5 SEEN Ur Squamous Epith Cells 10-25 SEEN Urine Bacteria 1+ Urine Mucus 0 SEEN 07/08/22 23:18 WBC 8.0 Corrected WBC RBC 4.36 Hgb 12.7 Hct 38.8 MCV 89.0 MCH 29.1 MCHC 32.7 RDW Std Deviation 43.5 RDW Coeff of Valery 13.3 Plt Count 248 MPV 10.6 Immature Gran % (Auto) 0.400 Neut % (Auto) 43.6 L Lymph % (Auto) 41.1 H [place] % (Auto) 10.9 H Eos % (Auto) 3.0 Baso % (Auto) 1.0 Absolute Neuts (auto) 3.5 Absolute Lymphs (auto) 3.27 Total Counted Neutrophils % (Manual) Band Neutrophils % Lymphocytes % (Manual) Monocytes % (Manual) Eosinophils % (Manual) Basophils % (Manual) Metamyelocytes % Myelocytes % Promyelocytes % Blast Cells % Plasma Cell % (Manual) Other Cells % Nucleated RBC % 0 Nucleated RBCs/100 WBC Differential Comment Diff Path Review Hypersegmented Neuts Atypical Lymphocytes Reactive Lymphocytes Smudge Cells Toxic Granulation Toxic Vacuolation Dohle Bodies Zeny Rods Platelet Estimate Plt Morphology Comment RBC Morphology Polychromasia Hypochromasia Poikilocytosis Basophilic Stippling Anisocytosis Microcytosis Macrocytosis Spherocytes Sickle Cells Target Cells Tear Drop Cells Ovalocytes Stomatocytes Fox-Paull[place] Bodies Chris Cells Bite Cells Crenated Cell Acanthocytes (Spur) Rouleaux Schistocytes Sodium Potassium Chloride Carbon Dioxide Anion Gap BUN Creatinine Estim Creat Clear Calc Est GFR (MDRD) Af Amer Est GFR (MDRD) Non-Af BUN/Creatinine Ratio Glucose Calcium Total Bilirubin AST ALT Alkaline Phosphatase Total Protein Albumin Globulin Albumin/Globulin Ratio Urine Color Urine Clarity Urine pH Ur Specific Union Urine Protein Urine Glucose (UA) Urine Ketones Urine Occult Blood Urine Nitrite Urine Bilirubin Urine Urobilinogen Ur Leukocyte Esterase Urine RBC Urine WBC Ur Squamous Epith Cells Urine Bacteria Urine Mucus Discharge Plan Triage Chief Complaint: Abn Labs ED Provider: Nabil Bran Dx/Rx/DC Orders Prescriptions: No Action polyethylene glycol 3350 17 GM powder in packet 17 g PO DAILY PRN PRN (Reason: constpation) Label Comments: CONSTIPATION amantadine HCl 100 MG capsule 100 mg PO BID Label Comments: ANTIVIRAL ascorbic acid (vitamin C) [Vitamin C] 500 MG tablet 500 mg PO DAILY@0800 Label Comments: VITAMIN multivitamin,ih-jzjy-yatfqhok [Therems-M] 1 TABLET tablet 1 tab PO DAILY Label Comments: VITAMIN zinc sulfate 220 MG capsule 220 mg PO DAILY Label Comments: SUPPLEMENT meloxicam 7.5 MG tablet 7.5 mg PO DAILY Fish Oil 1 EACH capsule 1,000 mg PO DAILY Ranitidine [Zantac] 150 MG tablet 150 mg PO BID levetiracetam 500 MG tablet 500 mg PO BID fluticasone propionate 1 SPRAY spray,suspension 1 spray NASAL DAILY carboxymethylcellulose-glycern [Refresh Optive] 10 ML drops,gel 1 drp Each Eye DAILY lisinopril 20 tablet 20 mg PO DAILY Label Comments: baclofen 10 tablet 10 mg PO QHS Label Comments: loratadine [Allergy Relief (loratadine)] 10 MG tablet 10 mg PO DAILY carbamazepine 200 MG tablet 200 mg PO BID calcium carbonate 500 MG tablet 500 mg PO DAILY peg 140-qywbetnqhkpp-hmebuerd 1 DROP bottle 1 drp EACH EYE BID acetaminophen 325 MG tablet 650 mg PO Q6H PRN PRN (Reason: Pain Score 1-3/Temp > 100.7 F) 0RF nystatin 1 APPLIC bottle 1 applic topical BID 0RF Protocol: *Topical Application Instructions APPLICATION INSTRUCTIONS: apply to groin menthol-zinc oxide 1 APPLIC ointment 1 applic topical TID 0RF Protocol: *Topical Application Instructions APPLICATION INSTRUCTIONS: TO COCCYX diazepam 10 MG tablet 10 mg RECTAL UD PRN (Reason: Seizures) Qty: 5 0RF Rx Instructions: for seizures carvedilol 25 mg tablet 25 mg PO DAILY divalproex 500 mg tablet,delayed release (DR/EC) 500 mg PO DAILY ergocalciferol (vitamin D2) [Vitamin D2] 1,250 mcg (50,000 unit) capsule 50,000 mcg PO DAILY famotidine [Pepcid] 20 mg Tablet 20 mg PO BID levetiracetam 750 mg tablet 750 mg PO BID Primary Care Provider: Mary Nuñez Activity Restrictions/Additional Instructions: Your blood work was normal today. Please follow-up with your primary care physician on an outpatient basis. Return for any new or worsening symptoms. Disposition Disposition: Home, Self Care
[2022-07-08 22:49] LABS: Mucous, Urine 0 SEEN /hpf (<or=2+)
[2022-07-08 22:53] LABS: ALB/GLOB Ratio 0.8 RATIO (0.9-2.4); AST(SGOT) 28 U/L (15-37); Alanine Aminotransfer ALT/SGPT 60 U/L (13-56); Albumin, Serum 3.2 g/dL (3.2-5.0); Alkaline Phosphatase 139 U/L (45-117); Anion Gap 7 (5-15); BUN 14 mg/dL (7-18); BUN/Creat Ratio 22.6 RATIO (10-20); Calcium,Total 9.1 mg/dL (8.5-10.1); Chloride 102 mmol/L (98-107); Creatinine, Serum 0.62 mg/dL (0.55-1.02); EST Glomerular Filtration Rate 109 mL/min (>60); Est Glom Filt Rate - Afr Amer 132 mL/min (>60); Estimated Creatinine Clearance 107.91 ml/min; Globulin 4.2 g/dL (2.2-4.2); Glucose 95 mg/dL (74-106); Potassium 4.3 mmol/L (3.5-5.1); Protein, Total 7.4 g/dL (6.4-8.2); Sodium Level 136 mmol/L (136-145)
[2022-07-08 23:10] VITALS: BP 138/90; PULSE 93; RESP 16; O2SAT 99
[2022-07-08 23:12] LABS: Color, Urine Yellow (Yellow); Glucose, Dipstick Normal (Normal); Ketone-Dipstick Negative (Negative); Leukocyte Esterase-Dipstick 100 /ul (Negative); Nitrite-Dipstick Negative (Negative); Occult Blood-Urine 10 /ul (Negative); Protein-Dipstick 15 mg/dl (Negative); Urine Bilirubin Dipstick Negative (Negative); Urine Clarity Cloudy (Clear); Urine Urobilinogen Normal (Normal)
[2022-07-08 23:23] LABS: Absolute Lymphocyte Count 3.27 X10^3/uL (0.83-4.51); Absolute Neutrophil Count 3.5 X10^3/uL (2.0-7.7); Basophil# 0.08 X10^3/uL; Eosinophil# 0.24 X10^3/uL; Hematocrit 38.8 % (37-47); Hemoglobin 12.7 g/dL (12.0-15.0); Lymphocyte # 3.27 X10^3/ul (0.83-4.51); Lymphocyte % 41.1 % (19-41); Mean Corp Hgb Conc 32.7 g/dL (32-36); Mean Corpuscular Hgb 29.1 pg (27.0-32.0); Mean Platelet Vol. 10.6 fl (6.2-12.0); Monocyte# 0.87 X10^3/uL; Monocyte% 10.9 % (0-10); NRBC Flagged by Analyzer 0 % (0-5); Neutrophil # 3.46 X10^3/uL (2.7-7.7); Neutrophil % 43.6 % (47-70); Platelet Count 248 K/mm3 (150-450); RBC Distribution Width CV 13.3 % (11.6-14.6); RBC Distribution Width SD 43.5 fl (35.1-43.9); Red Blood Count 4.36 M/mm3 (4.2-5.4)
[2022-07-08 23:31] LABS: Red Blood Cells-Urine 0-5 SEEN /hpf (0-5); Squamous Epithelial Cells - UA 10-25 SEEN /hpf (5-10); White Blood Cells 0-5 SEEN /hpf (0-5)
[2022-07-08 23:32] LABS: Bacteria 1+ /hpf (None Seen)
[2022-07-09 00:07] VITALS: PULSE 88; RESP 18; O2SAT 96
--- NOTE | 2022-07-09 00:17 | NURSING ---
DELORIS CALLED AND UPDATED ON LAB RESULTS AND PT WILL BE RETURNING.
== END 2022-07-09 04:10 | disposition home or self-care (01) ==
PROVIDERS: Emergency Provider Student in an Organized Health Care Education/Training Program; PCP Family Medicine; Referring Provider Student in an Organized Health Care Education/Training Program; Visit Provider Student in an Organized Health Care Education/Training Program
DX: G40.909 Epilepsy, unspecified, not intractable, without status epilepticus (principal); E86.0 Dehydration; Z79.899 Other long term (current) drug therapy
CPT/HCPCS: 36415; 80053; 81001; 85025; 99285; A4216

== ENCOUNTER 2022-08-29 06:41 | Observation (INO) | payer MEDICARE, MEDICAID, SELFPAY ==
[2022-08-29] VITALS (8 sets, daily range): BP systolic 122–147; BP diastolic 81–99; PULSE 70–88; RESP 12–18; TEMP 36.3–36.6; O2SAT 95–100; BMI 28.3
--- NOTE | 2022-08-29 06:56 | CT_ITS ---
INDICATION: Decreased Loc EXAMINATION: CT BRAIN - CT Head or Brain W/O Contrast Injection TECHNIQUE: Multiple axial images were obtained of the head without intravenous contrast. A radiation dose optimization technique was used for this scan. IV Contrast dosage and agent: None. RADIATION DOSAGE (If Supplied By Facility): CTDIvol = ( 44.99 ) mGy, DLP = ( 829.85 ) mGycm COMPARISON: Noncontrast CT brain July 23, 2017 FINDINGS: Normal soft tissue structures. There are bur holes on the right. There is ventriculostomy shunt catheter from right posterior aspect, its tip extending to the frontal horn of the left lateral ventricle. The right frontal subdural catheter is also unchanged. There is a stable degree of mild overall atrophy, as well as more specific zones of encephalomalacia along the anterior margin of right sylvian fissure and along the paramedian high left frontal lobe. Normal basal ganglia and thalami. Normal brainstem. Normal cerebellum. There is no intracranial hemorrhage. There are no findings of an acute ischemic infarction. Normal visualized paranasal sinuses. CT/Brain/Head without Contrast IMPRESSION: Chronic involutional changes of the brain, as noted. Stable CT appearance of the brain since July 23, 2017. Electronically Signed: Odilon Morris MD at 8:09 EDT Reading Location ID and State: [id number] / Unknown , Service support ,
--- NOTE | 2022-08-29 06:56 | RAD_ITS ---
INDICATION: Unresponsive. PT HAS A HX OF TBI,AND SEIZURE.LAST KNOWN WELL 3AM.PT FOUND UNRESPONSIVE. PT NORMALLY VERBAL AND AWAKE.BS 116. 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 COMPARISON: AP portable upright chest x-ray December 05, 2018 FINDINGS: LINES/DEVICES: Ventriculoperitoneal shunt is again seen overlying the soft tissues of the right neck, coursing over the right hemithorax to loop in the right flank of the abdomen, its tip outside the [id number]. Some calcifications are seen surrounding the shunt catheter in the soft tissues of the neck and chest wall. LUNGS: Suboptimal inspiratory effort. The patient again is rotated somewhat to the left. No consolidation, edema or effusion. No pneumothorax. MEDIASTINUM AND CARDIOVASCULAR STRUCTURES: Cardiac silhouette not enlarged. Central airways and mediastinal contour are unremarkable. BONES AND SOFT TISSUES: Unremarkable. RAD/Chest 1 View (Portable) IMPRESSION: No acute cardiopulmonary disease. Electronically Signed: Odilon Morris MD at 7:55 EDT Reading Location ID and State: [id number] / Unknown , Service support ,
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
[2022-08-29 07:18] LABS: Absolute Lymphocyte Count 1.04 X10^3/uL (0.83-4.51); Absolute Neutrophil Count 3.5 X10^3/uL (2.0-7.7); Basophil# 0.05 X10^3/uL; Eosinophil# 0.01 X10^3/uL; Eosinophils% 0.2 % (0-5); Hemoglobin 13.3 g/dL (12.0-15.0); Lymphocyte # 1.04 X10^3/ul (0.83-4.51); Lymphocyte % 21.2 % (19-41); Mean Corp Hgb Conc 33.3 g/dL (32-36); Mean Corpuscular Hgb 29.4 pg (27.0-32.0); Mean Corpuscular Volume 88.3 fL (81-99); Mean Platelet Vol. 10.9 fl (6.2-12.0); Monocyte# 0.27 X10^3/uL; Monocyte% 5.5 % (0-10); NRBC Flagged by Analyzer 0 % (0-5); Neutrophil # 3.52 X10^3/uL (2.7-7.7); Neutrophil % 71.9 % (47-70); Platelet Count 213 K/mm3 (150-450); RBC Distribution Width CV 12.9 % (11.6-14.6); RBC Distribution Width SD 42.2 fl (35.1-43.9); Red Blood Count 4.53 M/mm3 (4.2-5.4); White Blood Count 4.9 K/mm3 (4.4-11.0)
[2022-08-29 07:37] LABS: Valproic Acid (Depakene) Level 22 ug/mL (50-100)
[2022-08-29 07:38] LABS: ALB/GLOB Ratio 0.8 RATIO (0.9-2.4); AST(SGOT) 16 U/L (15-37); Alanine Aminotransfer ALT/SGPT 41 U/L (13-56); Albumin, Serum 3.2 g/dL (3.2-5.0); Alkaline Phosphatase 117 U/L (45-117); Anion Gap 8 (5-15); BUN 19 mg/dL (7-18); BUN/Creat Ratio 35.8 RATIO (10-20); Calcium,Total 8.6 mg/dL (8.5-10.1); Chloride 100 mmol/L (98-107); Creatinine, Serum 0.53 mg/dL (0.55-1.02); EST Glomerular Filtration Rate 130 mL/min (>60); Est Glom Filt Rate - Afr Amer 158 mL/min (>60); Estimated Creatinine Clearance 129.52 ml/min; Globulin 4.1 g/dL (2.2-4.2); Glucose 133 mg/dL (74-106); Potassium 3.7 mmol/L (3.5-5.1); Protein, Total 7.3 g/dL (6.4-8.2); Sodium Level 131 mmol/L (136-145); Troponin-I HS 34 pg/mL (3.0-54.0)
[2022-08-29 08:02] LABS: Lactic Acid 1.2 mmol/L (0.4-1.9)
[2022-08-29 08:45] LABS: Bacteria 0 SEEN /hpf (None Seen); Mucous, Urine 0 SEEN /hpf (<or=2+); Red Blood Cells-Urine 0 SEEN /hpf (0-5); Squamous Epithelial Cells - UA 0 SEEN /hpf (5-10); White Blood Cells 0 SEEN /hpf (0-5)
[2022-08-29 08:54] LABS: Color, Urine Yellow (Yellow); Glucose, Dipstick Normal (Normal); Leukocyte Esterase-Dipstick 25 /ul (Negative); Nitrite-Dipstick Negative (Negative); Occult Blood-Urine 10 /ul (Negative); Protein-Dipstick Negative (Negative); Urine Bilirubin Dipstick Negative (Negative); Urine Clarity Clear (Clear); Urine Urobilinogen Normal (Normal)
[2022-08-29 09:00] LABS: Ketone-Dipstick 150 mg/dl (Negative)
--- NOTE | 2022-08-29 09:19 | NURSING ---
DR ZHANE BARBOZA
--- NOTE | 2022-08-29 09:55 | HP.PCM.HOS_ITS ---
[facility] - General General Date of Service: 08/29/22 Chief Complaint: unresponsive HPI Narrative KARL COOPER, is a 47 F who presents with unresponsiveness. Patient was last seen normal by staff around 3 AM. When he checked on her at some point after 6 AM, patient was unresponsive. Patient was not waking up and sent to the emergency room. Patient underwent a work-up that was unremarkable. While she was in the emergency room, she slowly did become more awake and interactive but not at her baseline. Patient has a history of grand mal seizures after a traum atic brain injury. Her last seizure was in 2017. Patient does take Depakote as well as levetiracetam which she has been continually taking. [facility] Medical History Seizures Traumatic brain injury Home Medications amantadine HCl 100 mg capsule 100 mg PO BID tremors 03/03/13 [History Last Taken 08/28/22] ascorbic acid (vitamin C) 500 mg tablet (Vitamin C) 500 mg PO QHS supplement 03/03/13 [History Last Taken 08/28/22] polyethylene glycol 3350 17 gram oral powder packet 17 g PO DAILY PRN constpation 03/03/13 [History Last Taken 08/29/22] fluticasone propionate 50 mcg/actuation nasal spray,suspension 1 spray intranasal DAILY allergies 05/11/16 [History Last Taken 08/29/22] levetiracetam 500 mg tablet 750 mg PO BID seizures 05/11/16 [History Last Taken 08/29/22] baclofen 10 mg tablet 10 mg PO QHS muscle spasms 07/23/17 [History Last Taken 08/28/22] carvedilol 25 mg tablet 25 mg PO DAILY heart 07/08/22 [History Last Taken 08/29/22] divalproex 500 mg tablet,delayed release 500 mg PO DAILY seizures 07/08/22 [History Last Taken 08/29/22] ergocalciferol (vitamin D2) 1,250 mcg (50,000 unit) capsule (Vitamin D2) 50,000 mcg PO DAILY supplement 07/08/22 [History Last Taken 08/20/22] famotidine 20 mg tablet (Pepcid) 20 mg PO BID acid reflux 07/08/22 [History Last Taken 08/28/22] acetaminophen 500 mg tablet 1,000 mg PO Q8H PRN fever 08/29/22 [History Last Taken Unknown] docusate sodium 100 mg capsule (Col-Rite) 100 mg PO BID constipation 08/29/22 [History Last Taken 08/28/22] loratadine 10 mg tablet (Claritin) 10 mg PO DAILY allergies 08/29/22 [History Last Taken 08/29/22] menthol 0.44 %-zinc oxide 20.6 % topical ointment 1 applic topical Q12H PRN skin irritation 08/29/22 [History Last Taken Unknown] metronidazole 0.75 % topical cream (MetroCream) 1 applic topical QHS rosacia 08/29/22 [History Last Taken 08/28/22] omega 6-cyj-kwe-fish oil 300 mg-1,000 mg capsule,delayed release (Fish Oil) 1 cap PO QHS supplement 08/29/22 [History Last Taken 08/28/22] polyvinyl alcohol 1.4 % eye drops (Artificial Tears (polyvinyl alcohol)) 1 drp EACH EYE BID dry eye relief 08/29/22 [History Last Taken 08/29/22] Allergy/AdvReac Type Severity Reaction Status Date / Time phenytoin sodium Allergy Unknown Verified 08/29/22 06:53 [From Dilantin] phenytoin sodium extended Allergy Unknown Verified 08/29/22 06:53 [From Dilantin] Sulfa (Sulfonamide Allergy Unknown Verified 08/29/22 06:53 Antibiotics) unable to obtain unable to obtain Social History Smoking Status: Never smoker ROS Review of Systems ROS Unobtainable: due to encephalopathy Vital Signs Vital Signs Vital Signs: 08/29/22 06:46 08/29/22 07:59 08/29/22 08:00 Temperature 36.3 C L Temperature Source Temporal Pulse Rate 88 85 85 Respiratory Rate 18 16 15 Blood Pressure 141/92 H 122/81 H 122/89 H Blood Pressure Mean 108 94 100 Pulse Ox 97 95 98 Oxygen Delivery Method Room Air Room Air Room Air 08/29/22 09:15 Temperature Temperature Source Pulse Rate 78 Respiratory Rate 13 Blood Pressure 126/85 H Blood Pressure Mean 98 Pulse Ox 99 Oxygen Delivery Method Room Air Weight Weight: 84.4 kg Body Mass Index (BMI) 28.3 Physical Exam Const Constitutional Narrative: Awake. Answers questions with yes or no. Does not elaborate further. HEENT HEENT Narrative: Amblyopia. Resp normal respiratory effort, no retractions, no use of accessory muscles and clear to auscultation bilaterally Cardio regular rate, regular rhythm, S1 normal heart sound and S2 normal heart sound GI normal to inspection, nondistended, normoactive bowel sounds, soft to palpation, non-tender and non-distended Extremity Extremity Narrative: Plantar contraction flexors bilaterally. Results Lab / Micro Data Attestation: I reviewed the patient's lab results. 08/29/22 06:50 08/29/22 06:50 Labs: Laboratory Results - last 24 hr 08/29/22 06:50: WBC 4.9, RBC 4.53, Hgb 13.3, Hct 40.0, MCV 88.3, MCH 29.4, MCHC 33.3, RDW Std Deviation 42.2, RDW Coeff of Valery 12.9, Plt Count 213, MPV 10.9, Immature Gran % (Auto) 0.200, Neut % (Auto) 71.9 H, Lymph % (Auto) 21.2, [place] % (Auto) 5.5, Eos % (Auto) 0.2, Baso % (Auto) 1.0, Absolute Neuts (auto) 3.5, Absolute Lymphs (auto) 1.04, Nucleated RBC % 0, Sodium 131 L, Potassium 3.7, Chloride 100, Carbon Dioxide 23.0, Anion Gap 8, BUN 19 H, Creatinine 0.53 L, Estim Creat Clear Calc 129.52, Est GFR (MDRD) Af Amer 158, Est GFR (MDRD) Non-Af 130, BUN/Creatinine Ratio 35.8 H, Glucose 133 H, Lactic Acid 1.2, Calcium 8.6, Total Bilirubin 0.30, AST 16, ALT 41, Alkaline Phosphatase 117, Ammonia 14.0, Tr oponin I High Sens 34, Total Protein 7.3, Albumin 3.2, Globulin 4.1, Albumin/Globulin Ratio 0.8 L, Valproic Acid 22 L 08/29/22 08:40: Urine Color Yellow, Urine Clarity Clear, Urine pH 7.0, Ur Specific [place] 1.010, Urine Protein Negative, Urine Glucose (UA) Normal, Urine Ketones 150 A*, Urine Occult Blood 10 H, Urine Nitrite Negative, Urine Bilirubin Negative, Urine Urobilinogen Normal, Ur Leukocyte Esterase 25 H, Urine RBC 0 SEEN, Urine WBC 0 SEEN, Ur Squamous Epith Cells 0 SEEN, Urine Bacteria 0 SEEN, Urine Mucus 0 SEEN Micro: Microbiology 08/29/22 07:16 Nasal Secretion SARS-CoV-2 & FLU Antigen (Rapid) - Final Rhythm Strip Rhythm Strip: Sinus Rhythm Rate: 85 Ectopy: None Radiology Impression Brain CT 08/29/22 06:56 IMPRESSION: Chronic involutional changes of the brain, as noted. Stable CT appearance of the brain since July 23, 2017. Electronically Signed: Odilon Morris MD at 8:09 EDT Reading Location ID and State: [id number] / Unknown , Service support , Chest X-Ray 08/29/22 06:56 IMPRESSION: No acute cardiopulmonary disease. Electronically Signed: Odilon Morris MD at 7:55 EDT Reading Location ID and State: [id number] / Unknown , Service support , Assessment & Plan Assessment/Plan (1) Unresponsiveness: PLAN: I suspect that the patient is postictal after seizure. We will continue to monitor and supportive management. No reversible etiologies clearly identified at this time. I will check a Depakote as well as a levetiracetam level. Put patient on seizure precautions and has have as needed lorazepam. Patient father was present at bedside and states that she was never this unresponsive after seizure previously. States that they caught the seizure in time. I told him that some was having a seizure, without the use of benzodiazepines, he would not be able to break his seizure. I do not feel the patient is undergoing status epilepticus as she has become more alert at this time. I feel that she requires more time to come more fully alert and if at that point happens and she can likely be discharged. PLAN: Plan Chronic conditions * Debility: Patient is more or less wheelchair-bound. She has plantar contraction flexors bilaterally. * Seizure disorder: Continue with Depakote as well as levetiracetam. * Muscle spasms: Hold baclofen for now. VTE prophylaxis: Not indicated given current observation status. CODE STATUS: Per the prison forms. Patient is DNR comfort care. Case discussed with the patient's father at bedside. Charges/Coding Visit Charges Inpatient E&M: 95126 Init Hosp L2
--- NOTE | 2022-08-29 10:10 | NURSING ---
MED SURG OBS JOPPERI UNRESPONSIVE
[2022-08-29 11:01] LABS: Valproic Acid (Depakene) Level 20 ug/mL (50-100)
[2022-08-29] MEDS: Carvedilol 25 MG Tablet PO (13:34)
[2022-08-29] MEDS: Divalproex (ER) 500 MG Tablet PO (13:34)
[2022-08-29] MEDS: levETIRAcetam 750 MG Tablet PO ×2 (13:35→20:44)
[2022-08-29] MEDS: Amantadine 100 MG Capsule PO ×2 (13:35→20:44)
--- NOTE | 2022-08-29 15:19 | PCM.HOSP.N ---
Hospitalist Note Pt more alert but not at baseline. Her father was asking about salt agents (OTC) for her hyponatremia. He said she is on a fluid-restricted diet due to her sodium. I asked him if she has SIADH. He didn't know. 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 I told him the salt agents/gatorade would like be unhelpful. I brought the conversation to quality of life, would letting her eat and drink what ever she wants help her quality of life. He did not answer and did not seem ready to have that conversation. Since she is not at her baseline, will monitor overnight.
[2022-08-29] MEDS: Docusate Sodium 100 MG Capsule PO (20:44)
[2022-08-29] MEDS: Ascorbic Acid 500 MG Tablet PO (20:44)
[2022-08-30 02:00] VITALS: BP 142/75; PULSE 87; RESP 16; TEMP 36.6; O2SAT 100
[2022-08-30 08:00] VITALS: BP 141/98; PULSE 89; RESP 16; TEMP 36.4; O2SAT 100
--- NOTE | 2022-08-30 10:13 | CASEMGMT ---
Social Work CHRIST met with pt's father and legal guardian Ba Polo. Pt is currently a resident at [facility] and plans to return there upon discharge. Mr. Polo inquired about code status stating that he has always wanted pt to be full code and is upset that staff is inquiring about this. [facility] sent a copy of pts DNR form to [facility] indicating DNRCC-A dated 05/2020. SW provided father with a copy of the DNR Order form from [place] and encouraged him to speak with care home staff and care home physician regarding this. Father stating he would want pt to be a full code. CHRIST updated Dr. Lynn on conversation. Plan: Return to [facility], when medically ready ERICA Amezcua
--- NOTE | 2022-08-30 10:20 | CASEMGMT ---
RN ADAM NOTE: Intro role of CM to pt's father/guardian and FRANK form explained re: Observation status for treatment of unresponsiveness.? Explained hospitalization will be paid per?her insurance policy for Outpatient billing?and condition will continue to be evaluated for Inpt necessity. Also let father know that [facility] sends paper in the billing packet with their phone number if questions arise. Discussed Pharmacy section of FRANK form and self administered medication guideline.? Father verbalizes understanding and does not have any questions. ?Form signed, copy made and placed in chart, and original given to father. Alden BUTLERN RN CM
[2022-08-30] MEDS: levETIRAcetam 750 MG Tablet PO (10:34)
[2022-08-30] MEDS: Divalproex (ER) 500 MG Tablet PO (10:34)
[2022-08-30] MEDS: Amantadine 100 MG Capsule PO (10:35)
[2022-08-30] MEDS: Carvedilol 25 MG Tablet PO (10:35)
[2022-08-30] MEDS: Loratadine 10 MG Tablet PO (10:35)
[2022-08-30] MEDS: Docusate Sodium 100 MG Capsule PO (10:35)
--- NOTE | 2022-08-30 11:50 | PCM.TXEXTCAR ---
Diet Diet Order/Speech Therapy: 08/29/22 10:40 Diet: Regular - General Food consistency:: Regular Liquid Consistency:: Regular/Thin Routine Orders/Code Status Routine Lab Work: - (Depakote level in 3 days) Code Status: Full Code Therapies Weight Bearing: Resume previous activity Problem/Diagnosis (1) Unresponsiveness: Status: Acute Code(s): R41.89 - Other symptoms and signs involving cognitive functions and awareness Allergies/Procedures Done in Hospital Allergies phenytoin sodium [From Dilantin] Allergy (Verified 08/29/22 06:53) Unknown phenytoin sodium extended [From Dilantin] Allergy (Verified 08/29/22 06:53) Unknown Sulfa (Sulfonamide Antibiotics) Allergy (Verified 08/29/22 06:53) Unknown Procedures: None Type of Care/Length of Stay Estimated LOS: More Than 30 Days Type of Care Needed: Intermediate Rehab Potential: Fair Prognosis: Fair Additional Orders/Day of Discharge H&P will serve as current which was dated: 08/29/22 Day of Discharge: 08/30/22 Discharge Plan Admission Admit Date/Time: 08/29/22 09:51 Primary Reason for Your Visit: Encephalopathy-suspected to be secondary to postictal state Attending Provider: Robbin Lynn Primary Care Provider: Mary Nuñez Consulting Providers: Garth Mccollum Instructions Additional Instructions / Restrictions: Patient's Depakote level was noted to be low during her hospitalization, Depakote was increased on her discharge back to the [facility] to 500 mg twice daily, obtain repeat Depakote level in 3 days Discharge Orders/Prescriptions Prescriptions: Continued polyethylene glycol 3350 17 GM powder in packet 17 g PO DAILY PRN (Reason: constpation) amantadine HCl 100 MG capsule 100 mg PO BID ascorbic acid (vitamin C) [Vitamin C] 500 MG tablet 500 mg PO QHS levetiracetam 500 MG tablet 750 mg PO BID fluticasone propionate 1 SPRAY spray,suspension 1 spray intranasal DAILY baclofen 10 tablet 10 mg PO QHS Patient Comments: carvedilol 25 mg tablet 25 mg PO DAILY ergocalciferol (vitamin D2) [Vitamin D2] 1,250 mcg (50,000 unit) capsule 50,000 mcg PO DAILY famotidine [Pepcid] 20 mg Tablet 20 mg PO BID docusate sodium [Col-Rite] 100 mg capsule 100 mg PO BID omega 8-eke-whp-fish oil [Fish Oil] 300-1,000 mg capsule,delayed release(DR/EC) 1 cap PO QHS metronidazole [MetroCream] 0.75 % cream 1 applic topical QHS acetaminophen 500 mg tablet 1,000 mg PO Q8H PRN (Reason: fever) polyvinyl alcohol [Artificial Tears (polyvin alc)] 1.4 % drops 1 drp EACH EYE BID loratadine [Claritin] 10 mg tablet 10 mg PO DAILY menthol-zinc oxide 1 APPLIC ointment 1 applic topical Q12H PRN (Reason: skin irritation) Hold Instructions: MD Ordered Protocol: *Topical Application Instructions APPLICATION INSTRUCTIONS: TO COCCYX Changed divalproex 500 mg tablet,delayed release (DR/EC) 500 mg PO BIDCM Qty: 1 0RF Referrals / Follow Up: Mary Nuñez MD [Primary Care Provider] - Disposition Disposition (needs filled in before D/C Order can be placed): Nursing Home Facility
--- NOTE | 2022-08-30 11:58 | DS.PCM_ITS ---
Providers Date of Admission: 08/29/22 Date of Discharge: 08/30/22 Primary Care Physician: Dr. Mary Nuñez MD Reason For Visit: UNRESPONSIVE Diagnosis Discharge Diagnosis (1) Unresponsiveness: Status: Acute Code(s): R41.89 - Other symptoms and signs involving cognitive functions and awareness Plan 1. Acute seizure with postictal state #2 history of traumatic brain injury #3 essential hypertension Medications at Discharge Home Medications amantadine HCl 100 mg capsule 100 mg PO BID tremors 03/03/13 ascorbic acid (vitamin C) 500 mg tablet (Vitamin C) 500 mg PO QHS supplement 03/03/13 polyethylene glycol 3350 17 gram oral powder packet 17 g PO DAILY PRN constpation 03/03/13 fluticasone propionate 50 mcg/actuation nasal spray,suspension 1 spray intranasal DAILY allergies 05/11/16 levetiracetam 500 mg tablet 750 mg PO BID seizures 05/11/16 baclofen 10 mg tablet 10 mg PO QHS muscle spasms 07/23/17 carvedilol 25 mg tablet 25 mg PO DAILY heart 07/08/22 ergocalciferol (vitamin D2) 1,250 mcg (50,000 unit) capsule (Vitamin D2) 50,000 mcg PO DAILY supplement 07/08/22 famotidine 20 mg tablet (Pepcid) 20 mg PO BID acid reflux 07/08/22 acetaminophen 500 mg tablet 1,000 mg PO Q8H PRN fever 08/29/22 docusate sodium 100 mg capsule (Col-Rite) 100 mg PO BID constipation 08/29/22 loratadine 10 mg tablet (Claritin) 10 mg PO DAILY allergies 08/29/22 menthol 0.44 %-zinc oxide 20.6 % topical ointment 1 applic topical Q12H PRN skin irritation 08/29/22 metronidazole 0.75 % topical cream (MetroCream) 1 applic topical QHS rosacia 08/29/22 omega 5-sgl-ppr-fish oil 300 mg-1,000 mg capsule,delayed release (Fish Oil) 1 cap PO QHS supplement 08/29/22 polyvinyl alcohol 1.4 % eye drops (Artificial Tears (polyvinyl alcohol)) 1 drp EACH EYE BID dry eye relief 08/29/22 divalproex 500 mg tablet,delayed release 500 mg PO BIDCM seizures #1 TAB 08/30/22 Hospital Course Operations None Procedures None Summary of Care Provided Minutes Spent on Discharge: 31 Hospital Course: This 47-year-old white female was seen in the emergency room at [facility] after being transported in from local extended care facility at which she resides after being found unresponsive, patient had been in the residential for several years for ongoing care due to medical problems which included chronic seizure disorder and history of traumatic brain injury. On evaluation in the ER, patient was noted to be barely responsive, she does respond to voice by opening her eyes, she does not verbalize. Work-up in the emergency room was unremarkable, while she was in the emergency room, she slowly became more awake but did not return to her baseline. Brain CT showed chronic involutional changes of the brain with a stable CT appearance of the brain since 07/23/2017. Patient was placed into observation status on MedSurg 3, over the next several hours, she became more responsive, it was felt that the patient probably had an unknown seizure at the residential and was postictal when she was found at the residential. On 08/30/2022, patient was seen and examined: On examination she had cognitive impairment, she does not appear to be in any distress. Vital signs as documented. Skin warm and dry and without overt rashes. Neck without JVD, thyroid appears normal, trachea is midline, neck is supple. Lungs clear, normal air movement was noted. Heart exam notable for regular rhythm, normal sounds and absence of murmurs, rubs or gallops. Abdomen unremarkable and without evidence of organomegaly, masses, or abdominal aortic enlargement, bowel sounds are present in all 4 quadrants, no abdominal tenderness was noted. Extremities nonedematous, no cyanosis was noted, no clubbing was noted. Neuro: Cranial nerves II through XII are grossly intact. Psych: Patient is alert and exhibits cognitive impairment On 08/30/2022, patient was seen and examined and felt to be stable for discharge to her extended care facility. Further note: I discussed the patient's CODE STATUS with the patient's POA who is her father, evidently it had been marked on her resuscitation paperwork from the residential that the patient was a DNR CC arrest without intubation, patient's father denied this and stated that the patient was a full code. This was noted on her paperwork for return to the residential. Weight / BMI Weight Weight: 84.4 kg Body Mass Index (BMI) 28.3 ABG / Lab / Microbiology Data 08/29/22 06:50 08/29/22 06:50 Microbiology: Microbiology 08/29/22 07:16 Nasal Secretion SARS-CoV-2 & FLU Antigen (Rapid) - Final Meaningful Use Info Meaningful Use Diagnoses (Choose all that apply): None applicable Discharge Plan Admission Admit Date/Time: 08/29/22 09:51 Primary Reason for Your Visit: Encephalopathy-suspected to be secondary to postictal state Attending Provider: Robbin Lynn Primary Care Provider: Mary Nuñez Consulting Providers: Garth Mccollum Instructions Additional Instructions / Restrictions: Patient's Depakote level was noted to be low during her hospitalization, Depakote was increased on her discharge back to the [facility] to 500 mg twice daily, obtain repeat Depakote level in 3 days Discharge Orders/Prescriptions Prescriptions: Continued polyethylene glycol 3350 17 GM powder in packet 17 g PO DAILY PRN (Reason: constpation) amantadine HCl 100 MG capsule 100 mg PO BID ascorbic acid (vitamin C) [Vitamin C] 500 MG tablet 500 mg PO QHS levetiracetam 500 MG tablet 750 mg PO BID fluticasone propionate 1 SPRAY spray,suspension 1 spray intranasal DAILY baclofen 10 tablet 10 mg PO QHS Patient Comments: carvedilol 25 mg tablet 25 mg PO DAILY ergocalciferol (vitamin D2) [Vitamin D2] 1,250 mcg (50,000 unit) capsule 50,000 mcg PO DAILY famotidine [Pepcid] 20 mg Tablet 20 mg PO BID docusate sodium [Col-Rite] 100 mg capsule 100 mg PO BID omega 6-xri-uby-fish oil [Fish Oil] 300-1,000 mg capsule,delayed release(DR/EC) 1 cap PO QHS metronidazole [MetroCream] 0.75 % cream 1 applic topical QHS acetaminophen 500 mg tablet 1,000 mg PO Q8H PRN (Reason: fever) polyvinyl alcohol [Artificial Tears (polyvin alc)] 1.4 % drops 1 drp EACH EYE BID loratadine [Claritin] 10 mg tablet 10 mg PO DAILY menthol-zinc oxide 1 APPLIC ointment 1 applic topical Q12H PRN (Reason: skin irritation) Hold Instructions: MD Ordered Protocol: *Topical Application Instructions APPLICATION INSTRUCTIONS: TO COCCYX Changed divalproex 500 mg tablet,delayed release (DR/EC) 500 mg PO BIDCM Qty: 1 0RF Referrals / Follow Up: Mary Nuñez MD [Primary Care Provider] - Disposition Disposition (needs filled in before D/C Order can be placed): Detention Facility Charges/Coding Visit Charges Inpatient E&M: 68981 Disch Hosp >30min
--- NOTE | 2022-08-30 13:28 | PHA.DC_ITS ---
Pharmacy [facility] Reconciliation Pharmacy Service has performed discharge medication reconciliation for this patient. The patient's discharge medication list was reviewed for discrepancies and discrepancies were resolved. Medications at Discharge Home Medications amantadine HCl 100 mg capsule 100 mg PO BID tremors 03/03/13 ascorbic acid (vitamin C) 500 mg tablet (Vitamin C) 500 mg PO QHS supplement 03/03/13 polyethylene glycol 3350 17 gram oral powder packet 17 g PO DAILY PRN constpation 03/03/13 fluticasone propionate 50 mcg/actuation nasal spray,suspension 1 spray intranasal DAILY allergies 05/11/16 levetiracetam 500 mg tablet 750 mg PO BID seizures 05/11/16 baclofen 10 mg tablet 10 mg PO QHS muscle spasms 07/23/17 carvedilol 25 mg tablet 25 mg PO DAILY heart 07/08/22 ergocalciferol (vitamin D2) 1,250 mcg (50,000 unit) capsule (Vitamin D2) 50,000 mcg PO DAILY supplement 07/08/22 famotidine 20 mg tablet (Pepcid) 20 mg PO BID acid reflux 07/08/22 acetaminophen 500 mg tablet 1,000 mg PO Q8H PRN fever 08/29/22 docusate sodium 100 mg capsule (Col-Rite) 100 mg PO BID constipation 08/29/22 loratadine 10 mg tablet (Claritin) 10 mg PO DAILY allergies 08/29/22 menthol 0.44 %-zinc oxide 20.6 % topical ointment 1 applic topical Q12H PRN skin irritation 08/29/22 metronidazole 0.75 % topical cream (MetroCream) 1 applic topical QHS rosacia 08/29/22 omega 9-pyz-gqn-fish oil 300 mg-1,000 mg capsule,delayed release (Fish Oil) 1 cap PO QHS supplement 08/29/22 polyvinyl alcohol 1.4 % eye drops (Artificial Tears (polyvinyl alcohol)) 1 drp EACH EYE BID dry eye relief 08/29/22 divalproex 500 mg tablet,delayed release 500 mg PO BIDCM seizures #1 TAB 08/30/22
--- NOTE | 2022-08-30 13:29 | CASEMGMT ---
Social Work Per physician, pt is ready for discharge today. Discharge orders sent to [facility] via [facility]. 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 Phone call to pt father and updated on discharge plan. Nurse and [place] notified of d/c time. Disposition: Return to [facility], intermediate level of care ERICA Amezcua
[2022-08-30 13:56] VITALS: BP 138/96; PULSE 78; RESP 16; TEMP 36.6; O2SAT 100
--- NOTE | 2022-08-30 14:31 | NURSING ---
report called and given to [place] at [facility]
--- NOTE | 2022-08-30 16:08 | CHAPLAIN ---
Type of Pastoral Visit _x__ Initial Visit ___ Follow-up Visit ___ On-call Visit ___ General Patient Visit ___ Spiritual Assessment ___ Family Conference ___ Bereavement ___ Rapid Response ___ Code Blue ___ Other (describe below) Pastoral Care Referral From _x__ Patient ___ Family ___ Nurse ___ Physician ___ Care Manager Cna ___ Tank Cooper ___ Other (describe below) Sacrament/Intervention _x__ Active listening ___ Anointing ___ Tenriism ___ Bereavement ___ Communion ___ Windy exploration ___ ___ Life review ___ Prayer ___ Reconciliation ___ Sacrament of Sick _x__ Supportive presence ___ Wedding ___ Other (describe below) Pastoral Comments 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
[2022-08-31 09:09] LABS: KEPPRA (LEVETIRACETAM) 5.4 ug/mL (10.0-40.0)
== END 2022-08-30 14:29 | disposition skilled nursing facility (03) ==
LOC: ED 10:08 → MS3 10:12
PROVIDERS: Emergency Provider Emergency Medicine; PCP Family Medicine; Visit Provider Internal Medicine
DX: R41.89 Other symptoms and signs involving cognitive functions and awareness (principal); G40.909 Epilepsy, unspecified, not intractable, without status epilepticus; E22.2 Syndrome of inappropriate secretion of antidiuretic hormone; I10 Essential (primary) hypertension; Z87.820 Personal history of traumatic brain injury; Z79.899 Other long term (current) drug therapy; M62.838 Other muscle spasm
CPT/HCPCS: 70450; 71045; 80053; 80164; 80177; 81001; 82140; 83605; 84484; 85025; 87428; 93005; 97110; 97162; 97166; 97530; 97535; 99221; 99285; J7040; P9612; A4216; G0378